=== PATIENT | female | born 1950 | race Caucasian/White ===

== ENCOUNTER 2019-06-08 09:17 | Emergency (ER) | payer MEDICARE, SELFPAY ==
--- NOTE | ~2019-06-08 | CT_ITS ---
EXAMINATION: CT abdomen pelvis wo con DATE: 06/08/2019 10:16 INDICATION: Left flank pain TECHNIQUE: Computed tomography (CT) of the abdomen and pelvis was performed without intravenous contr ast. The dose-length product (DLP) was 608.96 mGy-cm. Automated exposure control and iterative recons truction technique were employed. COMPARISON: 01/12/2018 FINDINGS: The lung bases are clear. The heart size is normal. There are changes of cardiac valve surg marita. The liver is diffusely low in attenuation when compared with the spleen, consistent with hepatic steatosis. The gallbladder is surgically absent. The spleen, pancreas, and adrenal glands are normal . There is a 3 mm stone at the left ureterovesicular junction which causes mild left hydroureteroneph rosis. There are chronic calyceal calcifications of the right kidney. There is a 2 mm nonobstructing stone of the left kidney lower pole. No stones are identified in the right ureter or the bladder. Col onic diverticulosis is present without evidence of diverticulitis. No pathologically enlarged abdomin al or pelvic lymph nodes are identified. There is no free intraperitoneal gas or evidence of bowel ob struction. There are changes of mesh ventral hernia repair. There is chronic subcutaneous calcificati on in the left buttock area. There is moderate lumbar spondylosis. IMPRESSION: 1. 3 mm stone of the left ureterovesicular junction causing mild left hydroureteronephrosis. 2. Bilateral nephrolithiasis. Reviewed, dictated and finalized at location A. OGY LABORATORY ASSISTANT IMPRESSION: 1. 3 mm stone of the left ureterovesicular junction causing mild left hydrouret eronephrosis. 2. Bilateral nephrolithiasis.
--- NOTE | ~2019-06-08 | XR_ITS ---
EXAMINATION: XR abdomen/kub 1V INDICATION: Left flank pain TECHNIQUE: Supine views of the abdomen were obtained on 2 radiographs. COMPARISON: 08/27/[address] from today FINDINGS: The 3 mm left ureterovesicular junction stone identified on today's CT examination is not d efinitely identified. The bowel gas pattern is normal. There is a moderate volume of colonic stool. C holecystectomy clips are noted in the right upper quadrant. There are changes of mesh ventral hernia repair. IMPRESSION: 1. Known left ureterovesicular junction stone not definitely identified. Reviewed, dictated and finalized at location A. CONSULTANT
[2019-06-08 09:21] VITALS: BP 171/71; PULSE 77; RESP 18; TEMP 36.5; O2SAT 100
--- NOTE | 2019-06-08 09:46 | ED.ABDPAIN ---
HPI - Abdominal Pain General Chief Complaint: Abdominal Pain <Daniel Valenzuela PA-C - Last Filed: 06/08/19 12:46> Stated Complaint: LLQ abdominal pain <Daniel Valenzuela PA-C - Last Filed: 06/08/19 12:46> Time Seen by Provider: 06/08/19 09:19 <Daniel Valenzuela PA-C - Last Filed: 06/08/19 12:46> Source: patient and family <Daniel Valenzuela PA-C - Last Filed: 06/08/19 12:46> Mode of arrival: ambulatory <Daniel Valenzuela PA-C - Last Filed: 06/08/19 12:46> Limitations: no limitations <Daniel Valenzuela PA-C - Last Filed: 06/08/19 12:46> History of Present Illness HPI narrative: Patient is a 68-year-old female who presents to emergency department for evaluation of left groin pain that began this morning is a sharp stabbing pain possibly consistent with past urolithiasis patient notes 1 episode of emesis. Patient presents per private vehicle has not had anything for her pain denies other illness injury or trauma. Pain does not radiate. Pain is moderate to severe in nature <Daniel Valenzuela PA-C - Last Filed: 06/08/19 12:46> Related Data Allergies/Adverse Reactions: Allergies Allergy/AdvReac Type Severity Reaction Status Date / Time codeine Allergy Unknown Unknown Verified 06/08/19 09:35 <Daniel Valenzuela PA-C - Last Filed: 06/08/19 12:46> Review of Systems Review of Systems: All systems reviewed & are unremarkable except as noted in HPI and below <Daniel Valenzuela PA-C - Last Filed: 06/08/19 12:46> FORMERLY [facility] Past Medical History Medical History: Medical History (Updated 06/08/19 @ 10:59 by Daniel Valenzuela PA-C) Obesity Urolithiasis <Daniel Valenzuela PA-C - Last Filed: 06/08/19 12:46> Surgical History Surgical History: Surgical History (Updated 06/08/19 @ 09:48 by Daniel Valenzuela PA-C) H/O heart valve replacement with porcine valve <MARY Grande Last Filed: 06/08/19 12:46> Family History Family History: Family History Mother Hypertension Family history of rheumatoid arthritis Family history of cardiovascular disease Family history of chronic obstructive pulmonary disease Sibling Hypertension Family history of elevated blood lipids Family history of malignant neoplasm Family history of chronic obstructive pulmonary disease Father Family history of cardiovascular disease Family history of liver disease Family history of malignant neoplasm <Daniel Valenzuela PA-C - Last Filed: 06/08/19 12:46> Social History Social History: Social History Smoking status: Never smoker Gender identity (if verbalized by the patient): Female <Daniel Valenzuela PA-C - Last Filed: 06/08/19 12:46> Exam Narrative: Exam Narrative: GENERAL: Well-appearing, obese, and in no acute distress. HEAD: Normocephalic, atraumatic. EYES: PERRLA and EOMI. ENT: Nares clear, no rhinorrhea or epistaxis. Mucous membranes moist. Oropharynx without tonsillar hypertrophy exudate or other lesions. CHEST: Clear to auscultation. No respiratory distress. No wheezes rales or rhonchi HEART: Regular rate and rhythm. No murmur heard. Normal peripheral pulses. ABDOMEN: Soft, nontender, distended EXTREMITIES: Normal range of motion. No edema. SKIN: Warm, dry, no rash. NEURO: No focal deficits. Alert and oriented x3. Cranial nerves II through XII grossly intact PSYCH: Normal mood and affect. <Daniel Valenzuela PA-C - Last Filed: 06/08/19 12:46> Course Course Emergency Course: Patient in the room in no distress aware of case findings treatment plan and diagnosis agreeing to follow-up as directed or to return if symptoms worsen or concerns <Daniel Valenzuela PA-C - Last Filed: 06/08/19 12:46> Vital Signs Vital signs: Vital Signs Temperature 97.7 F 06/08/19 09:21 Pulse Rate 77 06/08/19 09:21 Respiratory Rate 18 02
[2019-06-08] MEDS: ONDANSETRON INJ 4 MG/2 ML VIAL IV PUSH (09:51)
[2019-06-08] MEDS: SODIUM CHLORIDE 0.9% IV 1,000 ML 999 ML IV CONT ×2 (09:51→11:10)
[2019-06-08] MEDS: FAMOTIDINE 20 MG/2 ML VIAL IV PUSH (09:51)
[2019-06-08 09:54] LABS: Basophils Absolute Auto 0.1 K/mm3 (0.0-0.1); Basophils Percent Auto 0.6 % (0.2-1.2); Eosinophils Percent Auto 0.3 % (0-4.4); Hematocrit 44.7 % (37.0-47.0); Hemoglobin 13.6 g/dL (12.0-15.0); Immature Granulocyte Absolute 0.05 K/mm3 (0.00-0.031); Immature Granulocyte Percent A 0.6 % (0-0.5); Lymphocytes Absolute Auto 2.52 K/mm3 (0.9-3.2); Lymphocytes Percent Auto 28.1 % (18.3-44.2); Mean Corpuscular HGB Conc 30.4 g/dl (32-36); Mean Corpuscular Hemoglobin 27.3 pg (26-34); Mean Corpuscular Volume 89.6 fl (80-100); Monocytes Absolute Auto 0.5 K/mm3 (0.1-0.6); Neutrophils Absolute Auto 5.9 K/mm3 (1.3-6.7); Neutrophils Percent Auto 65.4 % (45.5-73.1); Platelet Count Result 310 k/mm3 (150-375); Red Blood Count 4.99 M/mm3 (4.2-5.4); Red Cell Distribution Width 13.6 % (11.5-14.5)
[2019-06-08 09:59] LABS: Add Urine Microscopic? YES; Appearance Urine Clear (Clear); Bacteria Urine Trace /hpf; Bilirubin Urine Negative (Negative); Blood Urine 3+ (Negative); Color Urine Straw (Yellow); Glucose Urine UA 1+ mg/dL (Negative); Ketones Urine Negative (Negative); Leukocyte Esterase Ur Negative LEU/UL (Negative); Mucus Urine Rare /lpf; Nitrate Urine Negative (Negative); Protein Urine 1+ mg/dL (Negative); RBC Urine >75 /hpf (0-2); Specific Grav Ur 1.011 (1.001-1.035); Squamous Epithelial Cell Urine Few /hpf (Few); Urobilinogen Urine Negative mg/dL (<2.0); WBC Urine 0-3 /hpf
[2019-06-08 10:06] LABS: Lactic Acid Reflex 2.6 mmol/L (0.7-2.1)
[2019-06-08 10:11] LABS: Alanine Aminotransferase 53 U/L (4-35); Albumin Level 4.8 g/dL (3.5-5.1); Alkaline Phosphatase 128 U/L (38-126); Aspartate Amino Transferase 63 U/L (14-36); Bilirubin,Total 0.7 mg/dL (0.2-1.3); Blood Urea Nitrogen 18 mg/dL (7-17); Calcium 9.7 mg/dL (8.4-10.2); Carbon Dioxide 25 mmol/L (22-30); Chloride 97 mmol/L (98-107); Estimated CRCL calculation 80 ml/min; Estimated Glomerular Filt Rate > 60; Glucose 280 mg/dL (65-105); Lipase 104 U/L (23-300); Potassium 4.5 mmol/L (3.4-5.0); Sodium 139 mmol/L (137-145)
[2019-06-08] MEDS: KETOROLAC 15 MG/ML VIAL (*BKC) IV PUSH (11:09)
[2019-06-08 11:16] VITALS: BP 176/69; PULSE 76; RESP 16; O2SAT 99
[2019-06-08 12:51] LABS: Reflex Lactic Acid Yes or No Add Lactic
[2019-06-08 13:15] VITALS: BP 145/64; PULSE 78; RESP 16; O2SAT 99
--- NOTE | 2019-06-17 07:50 | PC.NURSE ---
LATE ENTRY This note is being entered to document information to the patient's record. The following information was omitted on [06/17/19], by [Cat TAM stopped at 1051 and 1210 on 06/08/19].
== END 2019-06-08 13:17 | disposition home or self-care (01) ==
PROVIDERS: Emergency Medicine Emergency Medical Services; Emergency Provider General Practice; PCP Family Medicine Adolescent Medicine
DX: N13.2 Hydronephrosis with renal and ureteral calculous obstruction (principal); E66.9 Obesity, unspecified; Z68.39 Body mass index [BMI] 39.0-39.9, adult; Z87.442 Personal history of urinary calculi; Z95.2 Presence of prosthetic heart valve
CPT/HCPCS: 36415; 74018; 74176; 80053; 81001; 83605; 83690; 85025; 96361; 96365; 96375; 99284; J0131; J1885; J2405; J7030

== ENCOUNTER 2022-02-24 08:18 | Outpatient (RCR) | payer MEDICARE, SELFPAY ==
[2022-02-24 09:12] VITALS: BMI 38.9
== END 2022-05-16 09:48 | disposition home or self-care (01) ==
LOC: ANHWOC 08:18
PROVIDERS: PCP Family Medicine Adolescent Medicine; Visit Provider Family Medicine Adolescent Medicine
DX: S81.809D Unspecified open wound, unspecified lower leg, subsequent encounter (principal)
CPT/HCPCS: 99213; G0463

== ENCOUNTER 2022-06-22 11:37 | Outpatient (CLI) | payer MEDICARE, SELFPAY ==
--- NOTE | ~2022-06-22 | XR_ITS ---
EXAMINATION: XR chest 2V Exam Date/Time: 06/22/2022 11:47 [facility]INC PLATE GRAINER HISTORY: [facility] Comparison: 12/31/2017, 04/01/2011, 12/05/2007; CT abdomen and pelvis 05/29/2019. RESULT: Lines, tubes, and devices: Intact sternotomy wires. Cardiac valve replacement. Lungs and pleura: Clear. Cardiomediastinal silhouette: Stable. Other: No acute osseous or upper abdominal finding. IMPRESSION: No acute cardiopulmonary process. Reviewed, dictated and finalized at location K. PLATE GRAINER
== END 2022-06-22 11:38 | disposition home or self-care (01) ==
PROVIDERS: PCP Family Medicine Adolescent Medicine; Visit Provider Internal Medicine Cardiovascular Disease
DX: R06.09 Other forms of dyspnea (principal)
CPT/HCPCS: 71046

== ENCOUNTER 2022-09-19 01:36 | Day surgery (SDC) | payer MEDICARE, SELFPAY ==
[2022-09-16 15:20] VITALS: BMI 39.1
[2022-09-19] VITALS (12 sets, daily range): BP systolic 94–124; BP diastolic 54–77; PULSE 86–109; RESP 14–23; TEMP 36.6; O2SAT 95–99; BMI 39.6
--- NOTE | 2022-09-19 08:30 | ECG_ITS ---
Measurements Intervals [place] Rate: 94 P: [place]: 0 QRS: 5 QRSD: 97 T: 42 QT: 386 QTc: 484 Interpretive Statements ATRIAL FIBRILLATION WITH ABERRANT CONDUCTION OR VENTRICULAR PREMATURE COMPLEXES PROBABLE INFERIOR MYOCARDIAL INFARCTION , PROBABLY OLD [35 ms Q WAVE IN II/aVF] ABNORMAL ECG NO PREVIOUS ECG AVAILABLE FOR COMPARISON Electronically Signed On 09-19-2022 10:25:28 CDT by Walt Rahman M.D.
[2022-09-19 08:56] LABS: Anion Gap 11 mmol/L (8-16); Blood Urea Nitrogen 59 mg/dL (7-17); Calcium 9.7 mg/dL (8.4-10.2); Carbon Dioxide 25 mmol/L (22-30); Chloride 102 mmol/L (98-107); Estimated CRCL calculation 47 ml/min; Estimated Glomerular Filt Rate 55; Glucose 228 mg/dL (65-110); Potassium 4.3 mmol/L (3.4-5.0); Sodium 138 mmol/L (137-145)
--- NOTE | 2022-09-19 09:43 | PM.IMHP ---
H&P: HPI History of Present Illness Date/Time: 09/19/22 09:43 Chief Complaint: Atrial fibrillation Narrative: 72-year-old noted in the office to have atrial fibrillation. She was having some chest pains shortness of breath. Metoprolol was increased. She is here today for cardioversion Review of Systems Review of Systems: All systems reviewed & are unremarkable except as noted in HPI and below Constitutional: Constitutional: Denies body ache(s) Cardiovascular: Cardiovascular: Denies chest pain and Reports palpitations Respiratory: Respiratory: Denies cough Gastrointestinal: Gastrointestinal: Denies abdominal pain PMFSH Past Medical History Medical History Obesity Urolithiasis Surgical History Surgical History H/O heart valve replacement with porcine valve History of aortic valve replacement with bioprosthetic valve (11/2016) History of lithotripsy (~01/2018) right Hx of appendectomy (2004) Hx of cholecystectomy (2004) Hx of hernia repair x3 Hx of total knee arthroplasty Right 2009, Left 2003 Family History Family History Mother Hypertension Family history of rheumatoid arthritis Family history of cardiovascular disease Family history of chronic obstructive pulmonary disease Sibling Hypertension Family history of elevated blood lipids Family history of malignant neoplasm Family history of chronic obstructive pulmonary disease Father Family history of cardiovascular disease Family history of liver disease Family history of malignant neoplasm Social History Social History Smoking packs per day: 0 Smoking cigarettes per day: 0.0 Smoking status: Never smoker Substance use: never Substance use type: does not use Living arrangements: with family Additional living arrangements comments: LIVES WITH , TIFFANY. Gender identity (if verbalized by the patient): Female Sexual Orientation (if Verbalized by the Patient): Straight or Heterosexual Spiritual care concerns: No Meds Home Medications and Allergies Home Medications Medication Instructions Recorded Confirmed Type famotidine 20 mg tablet 20 mg PO BID #60 tabs 06/16/21 09/19/22 Rx furosemide 40 mg tablet 60 mg PO QAM #135 tabs 01/03/22 09/19/22 Rx doxycycline hyclate 20 mg tablet 40 mg PO DAILY 01/04/22 09/19/22 History metolazone 2.5 mg tablet 2.5 mg PO EVERY OTHER DAY 01/04/22 09/16/22 History lisinopril 20 mg tablet 20 mg PO BID #180 tabs 02/17/22 09/19/22 Rx allopurinol 300 mg tablet 300 mg PO DAILY #30 tabs 04/29/22 09/19/22 Rx metoprolol tartrate 50 mg tablet 50 mg PO BID 08/09/22 09/19/22 History rivaroxaban 20 mg tablet (Xarelto) 20 mg PO DAILY 08/09/22 09/19/22 History blood sugar diagnostic (Accu-Chek #100 ea 08/10/22 Rx Norma Plus test strips) hydrocodone 10 mg-acetaminophen 0.5 tablet PO TID PRN pain #20 tabs 08/25/22 09/19/22 Rx 325 mg tablet glimepiride 2 mg tablet 4 mg PO DAILY #180 tabs 08/29/22 09/19/22 Rx magnesium oxide 400 mg (241.3 mg 400 mg PO DAILY 09/16/22 09/19/22 History magnesium) tablet metformin 500 mg tablet,extended 500 mg PO QID 09/16/22 09/19/22 History release 24 hr pravastatin 20 mg tablet 20 mg PO HS 09/16/22 09/19/22 History propylene glycol 0.6 % eye drops 1 drp EACH EYE DAILY PRN Dry Eyes 09/16/22 09/16/22 History (Systane Balance) Allergies Allergy/AdvReac Type Severity Reaction Status Date / Time codeine Allergy Unknown Nausea and Verified 09/19/22 08:39 Vomiting Sulfa (Sulfonamide Allergy Rash Verified 09/19/22 08:39 Antibiotics) Vital Signs Vital Signs - 24 hr 09/19/22 08:30 Temperature 36.6 C Pulse Rate 90 Respiratory Rate 22 H Blood Pressure 105/61 Pulse Oximetry 96 Oxygen Delivery Room Air Exam N
--- NOTE | 2022-09-19 09:46 | WPDMODSED ---
Moderate Sedation Note-Pt Data Patient Data Diagnosis: atrial fibrillation Present Complaint: atrial fibrillation Procedure to be performed/Plan: 1. Elective cardioversion 2. Moderate sedation Allergies Allergy/AdvReac Type Severity Reaction Status Date / Time codeine Allergy Unknown Nausea and Verified 09/19/22 08:39 Vomiting Sulfa (Sulfonamide Allergy Rash Verified 09/19/22 08:39 Antibiotics) Home Medications Medication Instructions Recorded Confirmed Type famotidine 20 mg tablet 20 mg PO BID #60 tabs 06/16/21 09/19/22 Rx furosemide 40 mg tablet 60 mg PO QAM #135 tabs 01/03/22 09/19/22 Rx doxycycline hyclate 20 mg tablet 40 mg PO DAILY 01/04/22 09/19/22 History metolazone 2.5 mg tablet 2.5 mg PO EVERY OTHER DAY 01/04/22 09/16/22 History lisinopril 20 mg tablet 20 mg PO BID #180 tabs 02/17/22 09/19/22 Rx allopurinol 300 mg tablet 300 mg PO DAILY #30 tabs 04/29/22 09/19/22 Rx metoprolol tartrate 50 mg tablet 50 mg PO BID 08/09/22 09/19/22 History rivaroxaban 20 mg tablet (Xarelto) 20 mg PO DAILY 08/09/22 09/19/22 History blood sugar diagnostic (Accu-Chek #100 ea 08/10/22 Rx Norma Plus test strips) hydrocodone 10 mg-acetaminophen 0.5 tablet PO TID PRN pain #20 tabs 08/25/22 09/19/22 Rx 325 mg tablet glimepiride 2 mg tablet 4 mg PO DAILY #180 tabs 08/29/22 09/19/22 Rx magnesium oxide 400 mg (241.3 mg 400 mg PO DAILY 09/16/22 09/19/22 History magnesium) tablet metformin 500 mg tablet,extended 500 mg PO QID 09/16/22 09/19/22 History release 24 hr pravastatin 20 mg tablet 20 mg PO HS 09/16/22 09/19/22 History propylene glycol 0.6 % eye drops 1 drp EACH EYE DAILY PRN Dry Eyes 09/16/22 09/16/22 History (Systane Balance) Current Medications: Active Medications Sodium Chloride (Normal Saline Iv) 500 mls @ 30 mls/hr IV CONT .[id number] TAMMIE Sedation/Anesthesia: No previous sedation/anesthesia problems (including family history). FORMERLY [facility] Past Medical History Medical History Obesity Urolithiasis Surgical History Surgical History H/O heart valve replacement with porcine valve History of aortic valve replacement with bioprosthetic valve (11/2016) History of lithotripsy (~01/2018) right Hx of appendectomy (2004) Hx of cholecystectomy (2004) Hx of hernia repair x3 Hx of total knee arthroplasty Right 2009, Left 2003 Family History Family History Mother Hypertension Family history of rheumatoid arthritis Family history of cardiovascular disease Family history of chronic obstructive pulmonary disease Sibling Hypertension Family history of elevated blood lipids Family history of malignant neoplasm Family history of chronic obstructive pulmonary disease Father Family history of cardiovascular disease Family history of liver disease Family history of malignant neoplasm Social History Social History Smoking packs per day: 0 Smoking cigarettes per day: 0.0 Smoking status: Never smoker Substance use: never Substance use type: does not use Living arrangements: with family Additional living arrangements comments: LIVES WITH , TIFFANY. Gender identity (if verbalized by the patient): Female Sexual Orientation (if Verbalized by the Patient): Straight or Heterosexual Spiritual care concerns: No Mod Sed Physical Exam Physical Exam Pre Procedural Exam: Normal: Appearance, Eyes, Ears, Nose, Neck, Throat, Airway, Lungs, Heart Size, Heart Rate, Neuro Exam, Extremities and Skin and Variation: Heart Rhythm ( irregular irregular) Hours since solid foods: 12 Hours since liquid intake: 12 Mallampati Classification: class II Internal Medicine - PN: Obj Da Vital Signs Vital Signs: Vital Signs - 24 hr 09/19/22 08:30 Temperature 36.6 C Pul
--- NOTE | 2022-09-19 10:09 | WPDCARDVER ---
Cardioversion Cardioversion Date of procedure: 09/19/22 Procedure: outpatient elective electrical cardioversion Moderate sedation Pre-op diagnosis: atrial fibrillation Post-op diagnosis: Same Indications: atrial fibrillation Description of procedure: after discussing the risks, benefits and alternatives of procedure patient agreeable via verbal and written informed consent. Risks discussed included skin irritation or burn, stroke, , adverse reaction anesthesia, shocking into more problematic heart rhythm. After time-out was taken and after establishing continuous telemetry monitoring, pulse ox Wong and serial blood pressure assessments the procedure was initiated. Procedure start time 9:49 a.m. Procedure stop time 10:04 a.m. Complications: None Blood loss: None Patient was monitored and medications were administered by Cheli Fonseca RN Sedation: a total of 6 mg of Versed and 75 mcg of fentanyl were given in divided dosages Findings: cardioversion was only temporarily successful on 2 occasions. 150 joules as well as 200 joules were both utilized which did temporarily but only briefly restore sinus rhythm from atrial fibrillation. She reverted back into atrial fibrillation quickly and a 3rd attempt therefore was not made. Conclusion: 1. Only briefly successful outpatient elective cardioversion using 150 and 200 joules of synchronized biphasic energy to restore sinus rhythm from atrial fibrillation 2. Moderate sedation Plan: Will start amiodarone 200 mg p.o. b.i.d. and bring her back in 3 weeks for re-attempt at cardioversion. Continue other medications without change especially Xarelto
== END 2022-09-19 11:43 | disposition home or self-care (01) ==
PROVIDERS: PCP Family Medicine Adolescent Medicine; Visit Provider Internal Medicine Cardiovascular Disease
PROC: 5A2204Z Restoration of Cardiac Rhythm, Single (ICD-10-PCS; principal; 2022-09-19 10:00)
DX: I48.91 Unspecified atrial fibrillation (principal); Z95.3 Presence of xenogenic heart valve; E66.9 Obesity, unspecified; Z68.39 Body mass index [BMI] 39.0-39.9, adult; Z79.84 Long term (current) use of oral hypoglycemic drugs; Z79.01 Long term (current) use of anticoagulants
CPT/HCPCS: 36415; 80048; 83735; 92960; J2250; J3010; J7030

== ENCOUNTER 2022-10-10 00:15 | Day surgery (SDC) | payer MEDICARE, SELFPAY ==
[2022-10-07 16:16] VITALS: BMI 37.9
[2022-10-10] VITALS (9 sets, daily range): BP systolic 92–132; BP diastolic 49–79; PULSE 47–79; RESP 14–18; TEMP 36.3; O2SAT 95–97
--- NOTE | 2022-10-10 09:51 | ECG_ITS ---
Measurements Intervals [place] Rate: 50 P: 33 MT: 153 QRS: 9 QRSD: 108 T: 46 QT: 495 QTc: 455 Interpretive Statements SINUS BRADYCARDIA WITH SINUS ARRHYTHMIA POSSIBLE LEFT ATRIAL ENLARGEMENT [-0.1mV P WAVE IN V1/V2] INFERIOR MYOCARDIAL INFARCTION , PROBABLY OLD [40+ ms Q WAVE AND/OR ST/T ABNORMALITY IN II/aVF] ABNORMAL ECG COMPARED TO ECG 10/10/2022 09:56:54 SINUS BRADYCARDIA NOW PRESENT SINUS ARRHYTHMIA NOW PRESENT Electronically Signed On 10-10-2022 11:13:53 CDT by Walt Rahman M.D.
--- NOTE | 2022-10-10 10:25 | WPDMODSED ---
Moderate Sedation Note-Pt Data Patient Data Diagnosis: Atrial fibrillation Present Complaint: atrial fibrillation Procedure to be performed/Plan: moderate sedation Electrical cardioversion Allergies Allergy/AdvReac Type Severity Reaction Status Date / Time Sulfa (Sulfonamide Allergy Rash Verified 10/10/22 09:54 Antibiotics) codeine AdvReac Unknown Nausea and Verified 10/10/22 09:54 Vomiting Home Medications Medication Instructions Recorded Confirmed Type famotidine 20 mg tablet 20 mg PO BID #60 tabs 06/16/21 10/07/22 Rx furosemide 40 mg tablet 60 mg PO QAM #135 tabs 01/03/22 10/07/22 Rx doxycycline hyclate 20 mg tablet 40 mg PO DAILY 01/04/22 10/07/22 History metolazone 2.5 mg tablet 2.5 mg PO EVERY OTHER DAY 01/04/22 09/16/22 History lisinopril 20 mg tablet 20 mg PO BID #180 tabs 02/17/22 10/10/22 Rx metoprolol tartrate 50 mg tablet 50 mg PO BID 08/09/22 10/10/22 History rivaroxaban 20 mg tablet (Xarelto) 20 mg PO DAILY 08/09/22 10/10/22 History blood sugar diagnostic (Accu-Chek #100 ea 08/10/22 Rx Norma Plus test strips) glimepiride 2 mg tablet 4 mg PO DAILY #180 tabs 08/29/22 10/07/22 Rx magnesium oxide 400 mg (241.3 mg 400 mg PO DAILY 09/16/22 10/10/22 History magnesium) tablet metformin 500 mg tablet,extended 500 mg PO QID 09/16/22 09/19/22 History release 24 hr pravastatin 20 mg tablet 20 mg PO HS 09/16/22 09/19/22 History propylene glycol 0.6 % eye drops 1 drp EACH EYE DAILY PRN Dry Eyes 09/16/22 09/16/22 History (Systane Balance) hydrocodone 10 mg-acetaminophen 0.5 tablet PO TID PRN pain #20 tabs 09/22/22 10/07/22 Rx 325 mg tablet allopurinol 300 mg tablet 300 mg PO DAILY #30 tabs 09/30/22 10/07/22 Rx amiodarone 200 mg tablet 200 mg PO DAILY 10/07/22 10/07/22 History Current Medications: Active Medications Sodium Chloride (Normal Saline Iv) 1,000 mls @ 30 mls/hr IV CONT .Q24H TAMMIE Sedation/Anesthesia: No previous sedation/anesthesia problems (including family history). [facility] Past Medical History Medical History Obesity Urolithiasis Surgical History Surgical History H/O heart valve replacement with porcine valve History of aortic valve replacement with bioprosthetic valve (11/2016) History of lithotripsy (~01/2018) right Hx of appendectomy (2004) Hx of cholecystectomy (2004) Hx of hernia repair x3 Hx of total knee arthroplasty Right 2009, Left 2003 Family History Family History Mother Hypertension Family history of rheumatoid arthritis Family history of cardiovascular disease Family history of chronic obstructive pulmonary disease Sibling Hypertension Family history of elevated blood lipids Family history of malignant neoplasm Family history of chronic obstructive pulmonary disease Father Family history of cardiovascular disease Family history of liver disease Family history of malignant neoplasm Social History Social History Smoking packs per day: 0 Smoking cigarettes per day: 0.0 Smoking status: Never smoker Second hand tobacco smoke exposure: Yes Alcohol intake: current Alcohol use details: 3 DRINKS PER MONTH Substance use: never Substance use type: does not use Living arrangements: with family Additional living arrangements comments: LIVES WITH , TIFFANY. Gender identity (if verbalized by the patient): Female Sexual Orientation (if Verbalized by the Patient): Straight or Heterosexual Spiritual care concerns: No Mod Sed Physical Exam Physical Exam Pre Procedural Exam: Normal: Appearance, Eyes, Ears, Nose, Neck, Throat, Airway, Lungs, Heart Size, Heart Rate, Neuro Exam, Extremities and Skin and Variation: Heart Rhythm ( irregular irregular) Hours since solid foods: 12 Hours since liquid
[2022-10-10 10:27] LABS: Anion Gap 8 mmol/L (8-16); Blood Urea Nitrogen 28 mg/dL (7-17); Calcium 9.9 mg/dL (8.4-10.2); Carbon Dioxide 30 mmol/L (22-30); Chloride 102 mmol/L (98-107); Estimated CRCL calculation 57 ml/min; Estimated Glomerular Filt Rate > 60; Glucose 201 mg/dL (65-110); Magnesium 1.6 mg/dL (1.6-2.3); Potassium 4.1 mmol/L (3.4-5.0); Sodium 140 mmol/L (137-145)
--- NOTE | 2022-10-10 10:30 | ECG_ITS ---
Measurements Intervals [place] Rate: 72 P: [place]: 0 QRS: 8 QRSD: 110 T: 49 QT: 445 QTc: 487 Interpretive Statements ATRIAL FIBRILLATION INFERIOR MYOCARDIAL INFARCTION , PROBABLY OLD [40+ ms Q WAVE AND/OR ST/T ABNORMALITY IN II/aVF] ABNORMAL ECG COMPARED TO ECG 09/19/2022 08:25:18 NO SIGNIFICANT CHANGES Electronically Signed On 10-10-2022 10:42:25 CDT by Walt Rahman M.D.
--- NOTE | 2022-10-10 11:04 | WPDCARDVER ---
Cardioversion Cardioversion Date of procedure: 10/10/22 Procedure: moderate sedation Electrical cardioversion Pre-op diagnosis: atrial fibrillation Post-op diagnosis: Same Indications: atrial fibrillation Description of procedure: after discussing the risks, benefits alternatives of the procedure patient agreeable via verbal and written informed consent. Risks discussed included skin irritation burn, shock into more problematic heart rhythm, , stroke, adverse reaction anesthesia. After establishing continuous vehicle monitor technician, pulse oxygenation in serial blood pressure assessments, time-out was taken the procedure was initiated. Medications used: Versed 4 mg total and 75 mcg of fentanyl given in divided dosages. Start time 10:51 a.m. Stop time 11:01 a.m. Medications were administered patient was monitored by Deysi Gaspar complications: None Blood loss: None After adequate sedation: 150 joules of biphasic synchronized energy was used to restore sinus rhythm /sinus bradycardia Sedation: as above, Versed 4 mg total and 75 mcg of fentanyl given in divided dosages Findings: successful evangelical of sinus rhythm/ sinus bradycardia using 100 joules biphasic synchronized energy Conclusion: successful elective cardioversion Moderate sedation
== END 2022-10-10 12:03 | disposition home or self-care (01) ==
PROVIDERS: PCP Family Medicine Adolescent Medicine; Visit Provider Internal Medicine Cardiovascular Disease
PROC: 5A2204Z Restoration of Cardiac Rhythm, Single (ICD-10-PCS; principal; 2022-10-10 11:30)
DX: I48.91 Unspecified atrial fibrillation (principal); Z95.3 Presence of xenogenic heart valve; Z79.01 Long term (current) use of anticoagulants; Z79.84 Long term (current) use of oral hypoglycemic drugs; Z79.891 Long term (current) use of opiate analgesic
CPT/HCPCS: 36415; 80048; 83735; 92960

== ENCOUNTER 2022-11-04 18:23 | Inpatient (IN) | payer MEDICARE, SELFPAY ==
--- NOTE | ~2022-11-04 | CT_ITS ---
EXAMINATION: CT abdomen pelvis w con DATE: 11/04/2022 19:34 INDICATION: lower abdominal tendnerss, hematochezia TECHNIQUE: Computed tomography (CT) of the abdomen and pelvis was performed with 100 mL Omnipaque-350 intravenous contrast. Automated exposure control and iterative reconstruction technique were employe d. The dose-length product was 2423.10 mGy-cm. COMPARISON: 06/08/2019. FINDINGS: Portions of the right lateral abdominal wall could not be included within the [id number]. Lower thorax: Aortic valve replacement. Extensive mitral calcification. Mild coronary artery calcific ation. Mild bilateral dependent scar/atelectasis. Liver: Enlarged. Biliary/Gallbladder: Gallbladder is absent. Prominent extrahepatic bile duct, likely secondary to cho lecystectomy Pancreas: Mild atrophy. Spleen: Normal. Adrenals:No mass. Kidneys: Punctate left lower pole nonobstructing calcification. Multiple right-sided nonobstructing c alculi. No suspicious mass or hydronephrosis. GI tract: No small or large bowel dilation. The appendix is surgically absent. Diverticulosis without diverticulitis. Mesentery/Peritoneum: No ascites, mass, or free air. Retroperitoneum: No mass. Atherosclerotic abdominal aortic and/or arterial calcifications. Pelvis: Pelvic organs are within normal limits. Soft Tissues: Extensive abdominal hernia repair mesh. Chronic left hip subcutaneous calcifications. Bones: No acute osseous finding. IMPRESSION: No acute abdominopelvic process detected. Reviewed, dictated and finalized at location K.
[2022-11-04 18:25] VITALS: BP 169/59; PULSE 74; RESP 14; TEMP 36.4; O2SAT 99
[2022-11-04 18:51] LABS: Basophils Absolute Auto 0.1 K/mm3 (0.0-0.1); Basophils Percent Auto 0.8 % (0.2-1.2); Eosinophils Absolute Auto 0.1 K/mm3 (0-0.3); Eosinophils Percent Auto 0.6 % (0-4.4); Hematocrit 44.6 % (37.0-47.0); Hemoglobin 13.7 g/dL (12.0-15.0); Immature Granulocyte Absolute 0.05 K/mm3 (0.00-0.031); Immature Granulocyte Percent A 0.6 % (0-0.5); Lymphocytes Absolute Auto 3.73 K/mm3 (0.9-3.2); Lymphocytes Percent Auto 41.4 % (18.3-44.2); Mean Corpuscular HGB Conc 30.7 g/dl (32-36); Mean Corpuscular Hemoglobin 27.3 pg (26-34); Monocytes Absolute Auto 0.7 K/mm3 (0.1-0.6); Monocytes Percent Auto 7.5 % (2.6-8.5); Neutrophils Absolute Auto 4.4 K/mm3 (1.3-6.7); Neutrophils Percent Auto 49.1 % (45.5-73.1); Platelet Count Result 310 k/mm3 (150-375); Red Blood Count 5.01 M/mm3 (4.2-5.4); Red Cell Distribution Width 15.6 % (11.5-14.5)
[2022-11-04 19:01] LABS: INR 1.4; Prothrombin Time 18.4 Seconds (11.1-14.7)
[2022-11-04 19:02] LABS: Partial Thromboplastin Time 34.9 SECONDS (22.3-36.8)
--- NOTE | 2022-11-04 19:05 | ED.GIBLEED ---
HPI - GI Bleed General Chief complaint: GI Bleed Stated complaint: Rectal bleeding Time Seen by Provider: 11/04/22 18:34 History of Present Illness HPI Narrative: 72-year-old female with a history of atrial fibrillation, pulmonary hypertension, diastolic dysfunction, type 2 diabetes who is chronically anticoagulated with Xarelto reports for evaluation for bright red blood per rectum worsening over the past 3 days. Patient reports she was diagnosed by her PCP with hemorrhoids and usually has a small amount of blood on the toilet paper when she wipes, however 3 days ago she has had an increased amount of blood with bowel movements. She reports watery diarrhea that started 3 days ago, she is having 5-6 episodes per day and states each time she goes to the bathroom she almost feels the toilet bowl with blood. She reports nausea in the mornings for the past 2 to 3 days and lower abdominal pain that started yesterday and today. She does report intermittent process of lightheadedness that is worse when she moves her head quickly and goes from sitting to standing position. She denies loss of consciousness, back pain, dizziness, dysuria, vaginal bleeding, vomiting, fever, rectal pain or itching, chest pain or shortness of breath, vomiting or hematemesis. States her last colonoscopy has been within the past 5 years and was normal. Patient reports a history of colitis many years ago. She denies history of colon cancer or IBD. Denies family history of colon cancer or IBD. She does report a history of colitis. Related Data Home Medications Medication Instructions Recorded Confirmed doxycycline hyclate 20 mg tablet 40 mg PO DAILY 01/04/22 11/05/22 metolazone 2.5 mg tablet 2.5 mg PO 3XW 01/04/22 11/05/22 rivaroxaban 20 mg tablet (Xarelto) 20 mg PO HS 08/09/22 11/05/22 magnesium oxide 400 mg (241.3 mg 400 mg PO DAILY 09/16/22 11/05/22 magnesium) tablet metformin 500 mg tablet,extended 500 mg PO QID 09/16/22 11/05/22 release 24 hr pravastatin 20 mg tablet 20 mg PO HS 09/16/22 11/05/22 propylene glycol 0.6 % eye drops 1 drp EACH EYE DAILY Dry Eyes 09/16/22 11/05/22 (Systane Balance) amiodarone 200 mg tablet 200 mg PO DAILY 10/07/22 11/05/22 indomethacin 50 mg capsule 50 mg PO TID PRN .Gout flare ups. 11/05/22 11/05/22 Allergies Allergy/AdvReac Type Severity Reaction Status Date / Time Sulfa (Sulfonamide Allergy Rash Verified 11/05/22 00:36 Antibiotics) codeine AdvReac Unknown Nausea and Verified 11/05/22 00:36 Vomiting Review of Systems Review of Systems: CONSTITUTIONAL: Denies fever, chills EYES: Denies visual changes, redness, or discharge. ENT: Denies rhinorrhea, congestion, sore throat, or otalgia. CARDIOVASCULAR: Denies chest pain, palpitations, or edema. RESPIRATORY: Denies cough or dyspnea. GASTROINTESTINAL: See HPI GENITOURINARY: Denies dysuria or hematuria. SKIN: Denies rash or itching. MUSCULOSKELETAL: Denies back pain, joint pain, or myalgia. NEUROLOGIC: Denies headache, numbness, dizziness, or weakness. PSYCHIATRIC: Denies anxiety or depression. [facility] Past Medical History Medical History Obesity Urolithiasis Surgical History Surgical History H/O heart valve replacement with porcine valve History of aortic valve replacement with bioprosthetic valve (11/2016) History of lithotripsy (~01/2018) right Hx of appendectomy (2004) Hx of cholecystectomy (2004) Hx of hernia repair x3 Hx of total knee arthroplasty Right 2009, Left 2003 Family History Family History Mother Family history of cardiovascular disease Family history of chronic obstructive pulmonary disease Family history of rheumatoid arthritis Hypertension Sibling Family history of elevated blood lipids Family history of malignant neoplasm Family history of chronic ob
[2022-11-04 19:10] LABS: Alanine Aminotransferase 38 U/L (6-35); Albumin Level 5.2 g/dL (3.5-5.1); Alkaline Phosphatase 126 U/L (38-126); Anion Gap 16 mmol/L (8-16); Aspartate Amino Transferase 40 U/L (14-36); Bilirubin,Total 0.5 mg/dL (0.2-1.3); Blood Urea Nitrogen 33 mg/dL (7-17); Calcium 10.8 mg/dL (8.4-10.2); Carbon Dioxide 27 mmol/L (22-30); Chloride 97 mmol/L (98-107); Estimated CRCL calculation 42 ml/min; Estimated Glomerular Filt Rate 49; Glucose 263 mg/dL (65-110); Potassium 3.7 mmol/L (3.4-5.0); Sodium 140 mmol/L (137-145)
[2022-11-04] MEDS: SODIUM CHLORIDE 0.9% IV 1,000 ML 500 ML IV CONT ×2 (19:20→23:10)
[2022-11-04 19:36] LABS: Lipase 112 U/L (23-300)
[2022-11-04 19:37] LABS: Lactic Acid Reflex 2.5 mmol/L (0.7-2.0)
[2022-11-04 19:51] LABS: Appearance Urine Clear (Clear); Bilirubin Urine Negative (Negative); Blood Urine Negative (Negative); Color Urine Yellow (Yellow); Glucose Urine UA Negative (Negative); Ketones Urine Negative (Negative); Leukocyte Esterase Ur Negative LEU/UL (Negative); Nitrate Urine Negative (Negative); Protein Urine Negative (Negative); Specific Grav Ur 1.013 (1.001-1.035); Urobilinogen Urine 0.2 mg/dL (<2.0); pH Urine 5.5 (5.0-9.0)
[2022-11-04 19:55] LABS: Add Urine Microscopic? NO
[2022-11-04 20:21] VITALS: BP 165/55; PULSE 70
[2022-11-04 20:22] VITALS: BP 176/77; PULSE 75
[2022-11-04 20:23] VITALS: BP 173/66; PULSE 80
[2022-11-04 20:26] VITALS: BP 165/55; PULSE 79; RESP 16; O2SAT 98
--- NOTE | 2022-11-04 21:22 | ECG_ITS ---
Measurements Intervals [place] Rate: 61 P: 27 CA: 153 QRS: -2 QRSD: 106 T: 58 QT: 370 QTc: 374 Interpretive Statements SINUS RHYTHM WITH MARKED SINUS ARRHYTHMIA BORDERLINE R WAVE PROGRESSION, ANTERIOR LEADS CONSIDER INFERIOR INFARCT, AGE INDETERMINATE BORDERLINE ST-T WAVE ABNORMALITY- HIGH LATERAL LEADS BASELINE ARTIFACT- V6 ABNORMAL ECG COMPARED TO ECG 10/10/2022 11:07:43 SINUS RHYTHM NOW PRESENT Electronically Signed On 11-05-2022 7:14:53 CDT by Orestes Prince D.O.
[2022-11-04 22:25] LABS: Reflex Lactic Acid Yes or No Add Lactic
[2022-11-04 23:12] LABS: Lactic Acid 2.3 mmol/L (0.7-2.0)
[2022-11-05] VITALS (7 sets, daily range): BP systolic 129–153; BP diastolic 55–73; PULSE 63–81; RESP 16; TEMP 35.9–36.5; O2SAT 95–100; BMI 38.9
--- NOTE | 2022-11-05 00:10 | ADMGEN ---
This patient, Lavern Rascon, was admitted to [facility] Surg Room 301-01 on 11/05/2022 at 0000. Patient/family oriented to hospital policies and general routines including ID bracelet, bed and alarms, visiting hours, pain management, procedures, bathroom and other care routines, personal items, smoking policy, room service/diet, and visiting hours. Information on how to activate the Rapid Response Team has been discussed. Patient/Family are encouraged to report perceived risks to care and to ask questions if they do not understand what they are told or what they should do.
--- NOTE | 2022-11-05 00:30 | PM.IMHP ---
H&P: HPI History of Present Illness Date/Time: 11/05/22 00:30 Chief Complaint: pooping bright red blood Narrative: 72-year-old female with past medical history of aortic valve replacement, paroxysmal atrial fibrillation on chronic 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 with Xarelto, GERD, uncontrolled type 2 diabetes mellitus who presented to the ER from home with 1 week of rectal bleeding. The patient reports that she always has mushy stools are usually brown. But for the last week she has been having watery brown stools with some bleeding. She always has a some bleeding from rectum due to history of hemorrhoids. However the last week bleeding has been heavy year. She reports the lab for the last 2 days every time she thinks she has staff a bowel movement she does pass is mostly gas and several tbsp of blood. She reports that it appears as if the toilet is full of blood. She reports that she has also been having some concomitant nausea but no real vomiting. She has no appetite. She has been having episodes of sweating and feeling clammy. The symptoms are of course worse when she is getting great have a bowel movement. She does feel slightly lightheaded at these times. She has not had any syncope. She reports that prior to having her cardioversion on the 10 of October she was having marked dyspnea. But since she is now back in sinus rhythm she is not having any dyspnea on exertion. She is on chronic diuretic therapy with denies a known history of heart failure. Her last echocardiogram was in March of 2022 demonstrated normal systolic function with mild concentric left ventricular hypertrophy and grade 1 diastolic dysfunction with EF of 70-75% with moderate left atrial enlargement. She does have chronic venous stasis dermatitis and is on chronic antibiotic therapy with doxycycline daily. She denies any chest pain. She has not had any cough or congestion. She denies any hematuria. She does have chronic urinary frequency urgency and frequent incontinence. She wears pads all the time. She denies any dysuria. Review of Systems Review of Systems: 12 systems were reviewed with pertinent positives and negatives per HPI. Except as documented in the HPI, all other systems were reviewed and are negative. 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 Chronic venous stasis dermatitis Right lower extremity greater than left on chronic antibiotic therapy with doxycycline Diabetic peripheral neuropathy Diastolic dysfunction (~03/2020) Essential hypertension Glaucoma Gout Hyperlipidemia Migraine Obesity Pulmonary hypertension (~03/2020) Type 2 diabetes mellitus with hyperglycemia, without long-term current use of insulin Urolithiasis Surgical History Surgical History (Updated 11/05/22 @ 02:51 by Phuong Gaines DO) History of aortic valve replacement with bioprosthetic valve (11/2016) bovine valve History of lithotripsy (~01/2018) right Hx of appendectomy (2004) Hx of cholecystectomy (2004) Hx of hernia repair x3 Hx of total knee arthroplasty Right 2009, Left 2003 Family History Family History Mother Family history of cardiovascular disease Family history of chronic obstructive pulmonary disease Family history of rheumatoid arthritis Hypertension Sibling Family history of elevated blood lipids Family history of malignant neoplasm Family history of chronic obstructive pulmonary disease Hypertension Lung cancer Father Family history of cardiovascular disease Family history of malignant neoplasm Family history of liver disease Social History Social History (Updated 11/05/22 @ 02:54 by Phuong Gaines DO) Social History: She lives at home with her of 40 years. She clarifies that he is her 3rd . She has 2 sons. Her youngest son is 52 years old
[2022-11-05 01:38] LABS: Hematocrit 39.3 % (37.0-47.0); Hemoglobin 12.1 g/dL (12.0-15.0)
[2022-11-05 06:52] LABS: Basophils Percent Auto 0.5 % (0.2-1.2); Eosinophils Absolute Auto 0.1 K/mm3 (0-0.3); Eosinophils Percent Auto 0.8 % (0-4.4); Hematocrit 37.7 % (37.0-47.0); Hemoglobin 11.5 g/dL (12.0-15.0); Immature Granulocyte Absolute 0.04 K/mm3 (0.00-0.031); Immature Granulocyte Percent A 0.5 % (0-0.5); Lymphocytes Absolute Auto 2.88 K/mm3 (0.9-3.2); Mean Corpuscular HGB Conc 30.5 g/dl (32-36); Mean Corpuscular Hemoglobin 27.5 pg (26-34); Mean Corpuscular Volume 90.2 fl (80-100); Mean Platelet Volume 11.2 fl (7.4-10.4); Monocytes Absolute Auto 0.6 K/mm3 (0.1-0.6); Monocytes Percent Auto 7.5 % (2.6-8.5); Neutrophils Absolute Auto 4.6 K/mm3 (1.3-6.7); Neutrophils Percent Auto 55.7 % (45.5-73.1); Platelet Count Result 269 k/mm3 (150-375); Red Blood Count 4.18 M/mm3 (4.2-5.4); Red Cell Distribution Width 15.6 % (11.5-14.5); White Blood Count 8.2 K/mm3 (4.5-10.0)
[2022-11-05 07:04] LABS: Anion Gap 9 mmol/L (8-16); Blood Urea Nitrogen 21 mg/dL (7-17); Calcium 9.6 mg/dL (8.4-10.2); Carbon Dioxide 30 mmol/L (22-30); Chloride 101 mmol/L (98-107); Estimated CRCL calculation 58 ml/min; Estimated Glomerular Filt Rate > 60; Glucose 161 mg/dL (65-110); Potassium 3.5 mmol/L (3.4-5.0); Sodium 140 mmol/L (137-145)
[2022-11-05 07:34] LABS: Glucose Point of Care 198 mg/dl (65-105)
[2022-11-05] MEDS: AMIODARONE HCL 200 MG TABLET PO (08:35)
[2022-11-05] MEDS: allopurinoL 300 MG TABLET PO (08:36)
[2022-11-05] MEDS: METOPROLOL TARTRATE 25 MG TABLET PO ×2 (08:36→21:01)
[2022-11-05] MEDS: lisinopriL 20 MG TABLET PO ×2 (08:36→17:12)
[2022-11-05] MEDS: FAMOTIDINE 20 MG TABLET PO ×2 (08:36→17:12)
[2022-11-05] MEDS: ARTIFICIAL TEARS OPHTH SOLN 15 ML BOTTLE 1 DROP EACH EYE (08:36)
[2022-11-05] MEDS: MAGNESIUM OXIDE 400 MG TABLET PO (08:36)
--- NOTE | 2022-11-05 08:37 | WPDGICN ---
Assessment and Plan Assessment and plan (1) GI bleed: Qualifiers: GI bleed type/associated pathology: unspecified gastrointestinal hemorrhage type Qualified Code(s): K92.2 - Gastrointestinal hemorrhage, unspecified Code(s): K92.2 - Gastrointestinal hemorrhage, unspecified Status: Acute Assessment and Plan: she has had intermittent rectal bleeding over the past few years due to the fact that she has hemorrhoids and is on a blood thinner but never to the extent that she has had in the past 3-6 days. For the past 3 days she has been passing blood several times a day, not just with bowel movements. The blood was 1st rather bright red but has become darker. She denies abdominal pain. Her hemoglobin on arrival in the emergency room was 13.7. This morning it is down to 11.5. She had a borderline lactic acid level of 2.5. She knows that she has had a colonoscopy several years ago. I am unable to access that aspect of the medical information system. (2) Atrial fibrillation: Code(s): I48.91 - Unspecified atrial fibrillation Status: Acute Assessment and Plan: She has had AFib fibrillation for several years but actually had cardioversion and is back in sinus rhythm. She is however still on Xarelto. 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 (4) Dermatitis: Code(s): L30.9 - Dermatitis, unspecified Status: Acute Assessment and Plan: Chronic dermatitis of the lower extremities. Plan Due to persistent bleeding and dropping hemoglobin will schedule her for colonoscopy to be done tomorrow morning. Will continue to monitor her blood counts. At this point it does not appear that she will need a transf usion. Xarelto has been held, her last dose 36 hours ago. GI Consult Note Consult date/time: 11/05/22 08:37 HPI: Lavern Rascon is a 72 year old female presented to the emergency room yesterday with rectal bleeding. She has seen blood in her stools on off for the past week, and more so in the past 3 days. The blood was bright red but it had become darker. This morning the blood she passed was darker than it had been. She has had no lower abdominal pain. She has some achiness in the epigastric area. Her stools have been loose. They tend to be loose most the time, And in fact are looser this week in fact yesterday morning she had kathryn diarrhea. She has not had a fever. She had not been traveling. She does take an antibiotic, doxycycline for dimer tightest but has been on that for quite some time. Her past medical history includes fact she has had a bovine aortic valve replacement. She has had bilateral knee replacement also appendectomy cholecystectomy and hernia repairs. She has chronic atrial fibrillation for which she takes Xarelto. Her last dose was the night before last. 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
--- NOTE | 2022-11-05 11:08 | WPDANESEPP ---
Anes - Eval Pre Procedure Procedure: colonoscopy Date/Time: 11/05/22 11:08 Pre Op Diagnosis: GI bleed Patient Data Age: 72 Gender: F Height: 1.55 m Weight: 93.5 kg Last Vital Signs Temp 35.9 C L 11/05/22 06:00 Pulse 80 11/05/22 08:36 Resp 16 11/05/22 06:00 BP 151/73 H 11/05/22 06:00 Pulse Ox 96 11/05/22 07:38 O2 Del Method Room Air 11/05/22 08:30 Allergies Allergy/AdvReac Type Severity Reaction Status Date / Time Sulfa (Sulfonamide Allergy Rash Verified 11/05/22 00:36 Antibiotics) codeine AdvReac Unknown Nausea and Verified 11/05/22 00:36 Vomiting Home Medications Medication Instructions Recorded Confirmed Type famotidine 20 mg tablet 20 mg PO BID #60 tabs 06/16/21 11/05/22 Rx doxycycline hyclate 20 mg tablet 40 mg PO DAILY 01/04/22 11/05/22 History metolazone 2.5 mg tablet 2.5 mg PO 3XW 01/04/22 11/05/22 History lisinopril 20 mg tablet 20 mg PO BID #180 tabs 02/17/22 11/05/22 Rx rivaroxaban 20 mg tablet (Xarelto) 20 mg PO HS 08/09/22 11/05/22 History blood sugar diagnostic (Accu-Chek #100 ea 08/10/22 11/05/22 Rx Norma Plus test strips) glimepiride 2 mg tablet 4 mg PO DAILY #180 tabs 08/29/22 11/05/22 Rx magnesium oxide 400 mg (241.3 mg 400 mg PO DAILY 09/16/22 11/05/22 History magnesium) tablet metformin 500 mg tablet,extended 500 mg PO QID 09/16/22 11/05/22 History release 24 hr pravastatin 20 mg tablet 20 mg PO HS 09/16/22 11/05/22 History propylene glycol 0.6 % eye drops 1 drp EACH EYE DAILY Dry Eyes 09/16/22 11/05/22 History (Systane Balance) allopurinol 300 mg tablet 300 mg PO DAILY #30 tabs 09/30/22 11/05/22 Rx amiodarone 200 mg tablet 200 mg PO DAILY 10/07/22 11/05/22 History metoprolol tartrate 50 mg tablet 25 mg PO BID #30 tabs 10/10/22 11/05/22 Rx hydrocodone 10 mg-acetaminophen 0.5 tablet PO TID PRN pain #30 tabs 10/20/22 11/05/22 Rx 325 mg tablet furosemide 40 mg tablet 60 mg PO QAM #135 tabs 10/24/22 11/05/22 Rx indomethacin 50 mg capsule 50 mg PO TID PRN .Gout flare ups. 11/05/22 11/05/22 History Laboratory Tests 11/04/22 11/04/22 11/04/22 18:42 19:21 22:48 WBC 9.0 K/mm3 (4.5-10.0) RBC 5.01 M/mm3 (4.2-5.4) Hgb 13.7 g/dL (12.0-15.0) Hct 44.6 % (37.0-47.0) MCV 89.0 fl (80-100) MCH 27.3 pg (26-34) MCHC 30.7 L g/dl (32-36) RDW 15.6 H % (11.5-14.5) Plt Count 310 k/mm3 (150-375) MPV 11.0 H fl (7.4-10.4) Immature Gran % (Auto) 0.6 H % (0-0.5) Neut % (Auto) 49.1 % (45.5-73.1) Lymph % (Auto) 41.4 % (18.3-44.2) [place] % (Auto) 7.5 % (2.6-8.5) Eos % (Auto) 0.6 % (0-4.4) Baso % (Auto) 0.8 % (0.2-1.2) Lymph # (Auto) 3.73 H K/mm3 (0.9-3.2) [place] # (Auto) 0.7 H K/mm3 (0.1-0.6) Eos # (Auto) 0.1 K/mm3 (0-0.3) Baso # (Auto) 0.1 K/mm3 (0.0-0.1) Abs Immat Gran (auto) 0.05 H K/mm3 (0.00-0.031) Absolute Neuts (auto) 4.4 K/mm3 (1.3-6.7) Absolute Nucleated RBC 0.0 K/mm3 (0.0-0.012) Nucleated RBC % 0.0 % (0.0-0.2) PT 18.4 H Seconds (11.1-14.7) INR 1.4 APTT 34.9 SECONDS (22.3-36.8) Sodium 140 mmol/L (137-145) Potassium 3.7 mmol/L (3.4-5.0) Chloride 97 L mmol/L (98-107) Carbon Dioxide 27 mmol/L (22-30) Anion Gap 16 mmol/L (8-16) BUN 33 H mg/dL (7-17) Creatinine 1.10 H mg/dL (0.7-1.0) Estim Creat Clear Calc 42 ml/min Estimated GFR 49 L (59 - ) Glucose 263 H mg/dL (65-110) POC Capillary Glucose Lactic Acid 2.5 H mmol/L 2.3 H mmol/L (0.7-2.0) (0.7-2.0) Calcium 10.8 H mg/dL (8.4-10.2) Total Bilirubin 0.5 mg/dL (0.2-1.3) AST 40 H U/L (14-36) ALT 38 H U/L (6-35) [place]
[2022-11-05 11:19] LABS: Toxigenic C. Diff NEGATIVE (NEGATIVE)
[2022-11-05 11:22] LABS: Glucose Point of Care 216 mg/dl (65-105)
--- NOTE | 2022-11-05 12:58 | PM.IMPN ---
Progress Note: A&P Assessment and Plan (1) Bright red blood per rectum: Code(s): K62.5 - Hemorrhage of anus and rectum Status: Acute Assessment and Plan: Patient is having bright red blood per rectum. Diverticular bleed is suspected. She does have history of hemorrhoids. Will hold the patient's Xarelto. CT abdomen pelvis revealing no acute abdominal pelvic process. Will monitor serial H&Hs and repeat CBC in a.m. Gastroenterology has been consulted Plan for colonoscopy tomorrow. (2) GI bleed: Qualifiers: GI bleed type/associated pathology: unspecified gastrointestinal hemorrhage type Qualified Code(s): K92.2 - Gastrointestinal hemorrhage, unspecified Code(s): K92.2 - Gastrointestinal hemorrhage, unspecified Status: Acute Assessment and Plan: See above Patient started on IV Pepcid. monitor H&H (3) Type 2 diabetes mellitus with hyperglycemia, without long-term current use of insulin: Code(s): E11.65 - Type 2 diabetes mellitus with hyperglycemia Status: Acute Assessment and Plan: Patient does have type 2 diabetes mellitus and she tells me that her glucoses are always uncontrolled. Her a 1 C most recently was 8.[address] patient on moderate sliding scale insulin Accu-Cheks a.c. HS. Hypoglycemia protocol has also been ordered as needed. Patient is on a clear liquid diet. (4) Acute kidney injury: Code(s): N17.9 - Acute kidney failure, unspecified Status: Acute Assessment and Plan: appears to be due to dehydration. BUN and creatinine on admission was 33/1.1. Repeat was 21/0.8. Continue to monitor. Plan Patient does have history of paroxysmal atrial fibrillation but is currently in sinus rhythm. Will continue patient's home amiodarone the Xarelto is on hold due to GI bleeding. The patient's blood pressures are elevated above her baseline. I suspect patient did not receive her evening doses of antihypertensives. Will monitor blood pressure closely and resume home blood pressure medications. Subjective Date/time seen: 11/05/22 12:58 Interval history: Patient doing well and states that she continues to have bloody diarrhea. She does have history of hemorrhoids. She denies any shortness a breath, dizziness, fatigue , abdominal pain, nausea, vomiting or lightheadedness. Plan to have a colonoscopy tomorrow. Continue to monitor her H&H. Review of Systems Review of Systems: All systems reviewed & are unremarkable except as noted in HPI and below Exam Narrative: GENERAL: Comfortable, no acute distress HENMT: moist mucous membranes EYES: EOM intact b/l NECK: no lymphadenopathy RESPIRATORY: clear to auscultation CARDIO: RRR GI: soft, nontender, bowel sounds present SKIN: no rashes EXTREMITIES: no edema, redness or tenderness Objective Data Vital Signs Vital Signs: Vital Signs - 24 hr 11/04/22 18:25 11/04/22 20:21 11/04/22 20:26 Temperature 97.5 F L Pulse Rate 74 70 79 Respiratory Rate 14 16 Blood Pressure 169/59 H 165/55 H 165/55 H Pulse Oximetry 99 98 Oxygen Delivery Room Air 11/04/22 20:22 11/04/22 20:23 11/05/22 06:00 Temperature 96.7 F L Pulse Rate 75 80 81 Respiratory Rate 16 Blood Pressure 176/77 H 173/66 H 151/73 H Pulse Oximetry 98 Oxygen Delivery 11/05/22 08:35 11/05/22 08:36 11/05/22 07:38 Temperature Pulse Rate 80 80 Respiratory Rate Blood Pressure Pulse Oximetry 96 Oxygen Delivery Room Air 11/05/22 08:30 Temperature Pulse Rate Respiratory Rate Blood Pressure Pulse Oximetry Oxygen Delivery Room Air Intake/Output Intake/Output: Intake & Output 11/02/22 11/03/22 11/04/22 11/05/22 23:59 23:59 23:59 23:59 Intake Total 1000 1483 Balance 1000 1483 Meds/Results Medications: Active Medications Generic Name Dose Route Start Last Admin Trade Name Freq PRN Reason Stop Dose Admin Hydroc
[2022-11-05] MEDS: INSULIN ASPART (*BKC) 100 UNITS/ML SUB-Q (13:05)
[2022-11-05] MEDS: BISACODYL 5 MG TABLET EC 15 MG PO (13:07)
[2022-11-05 14:43] LABS: Hematocrit 37.8 % (37.0-47.0); Hemoglobin 11.7 g/dL (12.0-15.0)
[2022-11-05] MEDS: polyethylene glycoL 3350 238 GM BOTTLE PO (15:58)
[2022-11-05 16:31] LABS: Glucose Point of Care 138 mg/dl (65-105)
[2022-11-05 20:16] LABS: Hematocrit 39.6 % (37.0-47.0); Hemoglobin 12.4 g/dL (12.0-15.0)
[2022-11-05] MEDS: PRAVASTATIN SODIUM 20 MG TABLET PO (21:01)
[2022-11-05 23:00] LABS: Glucose Point of Care 190 mg/dl (65-105)
[2022-11-06] VITALS (7 sets, daily range): BP systolic 100–152; BP diastolic 47–89; PULSE 54–70; RESP 14–20; TEMP 35.9–36; O2SAT 98–100
[2022-11-06 02:21] LABS: Hematocrit 37.1 % (37.0-47.0); Hemoglobin 11.8 g/dL (12.0-15.0); Mean Corpuscular HGB Conc 31.8 g/dl (32-36); Mean Corpuscular Hemoglobin 28.1 pg (26-34); Mean Corpuscular Volume 88.3 fl (80-100); Mean Platelet Volume 10.3 fl (7.4-10.4); Platelet Count Result 268 k/mm3 (150-375); Red Cell Distribution Width 15.6 % (11.5-14.5); White Blood Count 8.2 K/mm3 (4.5-10.0)
[2022-11-06 03:04] LABS: Alanine Aminotransferase 33 U/L (6-35); Albumin Level 4.2 g/dL (3.5-5.1); Alkaline Phosphatase 110 U/L (38-126); Anion Gap 7 mmol/L (8-16); Aspartate Amino Transferase 38 U/L (14-36); Bilirubin,Total 0.5 mg/dL (0.2-1.3); Blood Urea Nitrogen 12 mg/dL (7-17); Calcium 9.8 mg/dL (8.4-10.2); Carbon Dioxide 28 mmol/L (22-30); Chloride 102 mmol/L (98-107); Estimated CRCL calculation 65 ml/min; Estimated Glomerular Filt Rate > 60; Glucose 179 mg/dL (65-110); Potassium 3.7 mmol/L (3.4-5.0); Sodium 137 mmol/L (137-145)
[2022-11-06 03:12] LABS: Hemoglobin A1C 9.5 % (<5.7)
[2022-11-06 07:34] LABS: Glucose Point of Care 207 mg/dl (65-105)
[2022-11-06] MEDS: METOPROLOL TARTRATE 25 MG TABLET PO (07:55)
[2022-11-06] MEDS: LACTATED RINGERS 1,000 ML 150 ML IV CONT (08:07)
[2022-11-06] MEDS: GENTAMICIN 80MG/SOD CHL 50 ML 80 MG/50 ML BAG 100 MG IVPB (08:08)
[2022-11-06 08:13] LABS: Glucose Point of Care 200 mg/dl (65-105)
[2022-11-06] MEDS: AMPICILLIN 2 GM/NS 100 ML 2 GM/100 ML BAG IVPB (08:31)
--- NOTE | 2022-11-06 08:37 | P.PNAN_ITS ---
Anes - Eval Final PreProcedure Day of Procedure 11/06/22 08:37 Patient weight: obese Heart: regular rate and rhythm Lungs: clear to auscultation Airway: Mallampati scale class II Neurological: alert and oriented Last oral intake: >/= 8 hours ASA classification: IV Emergent: no Anesthetic plan: proceed Anesthesia type and monitoring: general GIVS and standard monitoring Results Review: All pre-operative results and documents have been reviewed as part of the pre- operative evaluation. Informed Consent: The patient's anesthetic plan and its attendant risks and benefits were discussed with the patient/family/POA. Questions were solicited and answers provided to the satisfaction of the patient/family/POA.
--- NOTE | 2022-11-06 08:53 | SUR.OPER ---
EGD START: 847; END: 850. COLONOSCOPY START: 856; END: 908.
[2022-11-06 10:12] LABS: Glucose Point of Care 214 mg/dl (65-105)
--- NOTE | 2022-11-06 10:16 | PM.DS ---
DS: Admitting Diagnosis Discharge Date 11/06/22 Admitting Diagnosis Bright red blood per rectum DS: Discharge Diagnosis Discharge Diagnosis (1) Bright red blood per rectum: Code(s): K62.5 - Hemorrhage of anus and rectum Status: Acute (2) GI bleed: Qualifiers: GI bleed type/associated pathology: unspecified gastrointestinal hemorrhage type Qualified Code(s): K92.2 - Gastrointestinal hemorrhage, unspecified Code(s): K92.2 - Gastrointestinal hemorrhage, unspecified Status: Acute (3) Type 2 diabetes mellitus with hyperglycemia, without long-term current use of insulin: Code(s): E11.65 - Type 2 diabetes mellitus with hyperglycemia Status: Acute (4) Acute kidney injury: Code(s): N17.9 - Acute kidney failure, unspecified Status: Acute DS: Summary Hospital Course Hospital Course: this is a 72-year-old female with a past medical history of aortic valve replacement, AFib on chronic 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 with Xarelto, GERD, uncontrolled type 2 diabetes the presented to the ED on 11/05/2022 with a 1 week history of rectal bleeding. She does have a history of hemorrhoids. she has been having bowel movements that blood feels mobile. she was having some feelings of lightheadedness but no syncope, no shortness of breath or dizziness. GI consulted. Patient's 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 medications were put on hold. Her H&H remained stable during hospital stay. GI performed EGD and colonoscopy revealing diverticulosis with internal hemorrhoids. Rectal bleeding resolved at the time of discharge. Is advised that patient resume her 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 medication as well as her other medication. Discussed close follow-up with primary doctor regarding her diabetes. Her labs and vital signs are stable and she is medically clear for discharge. Time Spent with Patient Time attestation: Total time spent providing and/or coordinating discharge services: Exam Narrative: GENERAL: Comfortable, no acute distress HENMT: moist mucous membranes EYES: EOM intact b/l NECK: no lymphadenopathy RESPIRATORY: clear to auscultation CARDIO: RRR GI: soft, nontender, bowel sounds present SKIN: no rashes EXTREMITIES: no edema, redness or tenderness DS: Data Data Completed and Pending Labs on day of discharge: Labs from last 24 hours 11/06/22 11/06/22 11/06/22 10:09 08:09 07:16 WBC RBC Hgb Hct MCV MCH MCHC RDW Plt Count MPV Sodium Potassium Chloride Carbon Dioxide Anion Gap BUN Creatinine Estim Creat Clear Calc Estimated GFR Glucose POC Capillary Glucose 214 H 200 H 207 H Hemoglobin A1c Calcium Total Bilirubin AST ALT Alkaline Phosphatase Total Protein Albumin C. difficile (PCR) 11/06/22 11/05/22 11/05/22 02:13 20:39 19:49 WBC 8.2 RBC 4.20 Hgb 11.8 L 12.4 Hct 37.1 39.6 MCV 88.3 MCH 28.1 MCHC 31.8 L RDW 15.6 H Plt Count 268 MPV 10.3 Sodium 137 Potassium 3.7 Chloride 102 Carbon Dioxide 28 Anion Gap 7 L BUN 12 D Creatinine 0.70 Estim Creat Clear Calc 65 Estimated GFR > 60 Glucose 179 H POC Capillary Glucose 190 H Hemoglobin A1c 9.5 H Calcium 9.8 Total Bilirubin 0.5 AST 38 H ALT 33 Alkaline Phosphatase 110 Total Protein 7.0 Albumin 4.2 C. difficile (PCR) 11/05/22 11/05/22 11/05/22 16:25 14:05 11:13 WBC RBC Hgb 11.7 L Hct 37.8 MCV MCH MCHC RDW Plt Count MPV Sodium Potassium Chloride Carbon Dioxide Anion Gap BUN Creatinine Estim Creat Clear Calc Estimated GFR Glucose POC Capillary Glucose 138 H 216 H Hemoglobin A1c Calcium Total Bilirubin AST ALT Alkaline Phosphatase Total Protein Albumin C. difficile (PCR) 11/05/22 09:59 WBC RBC Hgb Hct MCV MCH MCHC
[2022-11-06 10:29] LABS: Hematocrit 38.2 % (37.0-47.0); Hemoglobin 11.8 g/dL (12.0-15.0)
[2022-11-06] MEDS: INSULIN ASPART (*BKC) 100 UNITS/ML SUB-Q (10:43)
[2022-11-06] MEDS: FAMOTIDINE 20 MG TABLET PO (10:44)
[2022-11-06] MEDS: AMIODARONE HCL 200 MG TABLET PO (10:44)
[2022-11-06] MEDS: allopurinoL 300 MG TABLET PO (10:44)
[2022-11-06] MEDS: ARTIFICIAL TEARS OPHTH SOLN 15 ML BOTTLE 1 DROP EACH EYE (10:45)
[2022-11-06] MEDS: lisinopriL 20 MG TABLET PO (10:45)
[2022-11-06] MEDS: MAGNESIUM OXIDE 400 MG TABLET PO (10:45)
--- NOTE | 2022-11-06 11:25 | PC.NURSE ---
Pt is A&O4 female who participated and contributed in plan of care. Pt had EGD and Colonoscopy this AM. Pt denies any pain. Pt eager to discharge. Pt educated on discharge instructions. Pt tolerated testing well. Pt IV removed tip intact, pt tolerated well. Pt expresses no needs at this time. Pt going home with . Pt wheeled down to car by PCT. Pt was monitored for any changes in status while here.
--- NOTE | 2022-11-07 14:24 | WPDANESPN ---
Anes - Prog Note Post-Op Date/Time: 11/07/22 14:24 Cardiovascular status: normal Respiratory status: normal Airway patency: baseline Mental status: baseline Post-Op hydration status: normal Vital Signs: Last Vital Signs Temp 96.7 F L 11/06/22 08:15 Pulse 54 L 11/06/22 10:44 Resp 20 11/06/22 09:30 BP 118/50 L 11/06/22 09:30 Pulse Ox 100 11/06/22 09:30 O2 Del Method Room Air 11/06/22 09:30 Pain Score (VAS): 0/10 Laboratory Tests 11/06/22 10:15 11/06/22 02:13 Microbiology 11/05/22 09:59 Stool Escherichia coli Shiga Toxins - Final 11/05/22 09:59 Stool Giardia Antigen (JANETTE) - Final Post-procedural complaints: none Patient Feedback: Patient satisfied with anesthetic care. Other Findings: Per FN report
== END 2022-11-06 11:20 | disposition home or self-care (01) | DRG 378 ==
LOC: ANHED 18:56 → ANH3MEDSUR 23:07
PROVIDERS: Internal Medicine Gastroenterology; Admitting Provider Internal Medicine; Emergency Provider Physician Assistant; PCP Family Medicine Adolescent Medicine; Visit Provider Internal Medicine Critical Care Medicine
PROC: 0DJD8ZZ Inspection of Lower Intestinal Tract, Via Natural or Artificial Opening Endoscopic (ICD-10-PCS; CPT 45378; principal; 2022-11-06 08:30)
DX: K57.91 Diverticulosis of intestine, part unspecified, without perforation or abscess with bleeding (principal); N17.9 Acute kidney failure, unspecified; E11.65 Type 2 diabetes mellitus with hyperglycemia; E66.9 Obesity, unspecified; E78.5 Hyperlipidemia, unspecified; E11.42 Type 2 diabetes mellitus with diabetic polyneuropathy; H40.9 Unspecified glaucoma; I27.20 Pulmonary hypertension, unspecified; I10 Essential (primary) hypertension; I48.0 Paroxysmal atrial fibrillation; I87.8 Other specified disorders of veins; K64.8 Other hemorrhoids; K21.9 Gastro-esophageal reflux disease without esophagitis; L94.0 Localized scleroderma [morphea]; M10.9 Gout, unspecified; N39.41 Urge incontinence; Z95.4 Presence of other heart-valve replacement; Z66 Do not resuscitate; Z68.38 Body mass index [BMI] 38.0-38.9, adult; Z79.84 Long term (current) use of oral hypoglycemic drugs; Z90.49 Acquired absence of other specified parts of digestive tract; Z96.653 Presence of artificial knee joint, bilateral; Z79.01 Long term (current) use of anticoagulants
CPT/HCPCS: 36415; 74177; 80048; 80053; 81003; 82948; 83036; 83605; 83690; 85014; 85018; 85025; 85027; 85610; 85730; 86850; 86900; 86901; 87045; 87081; 87269; 87427; 87493; 89055; 93005; 96360; 96361; 99285; A9270; G0378; J0290; J1580; J1815; J2704; J7030; J7120; Q9967

== ENCOUNTER 2022-11-16 12:26 | Outpatient (CLI) | payer MEDICARE, SELFPAY ==
--- NOTE | 2022-11-16 14:11 | WPDPFTINT ---
PFT Procedure Performed PFT Procedure Performed Plethysmography (Lung Vol) Diffusing Cap (DLCO) Flow Vol Loop Spirometry w/o Bronchodil PFT Interpretation This is a pulmonary function test with spirometry, plethysmography and diffusing capacity. The test was performed and results interpreted in accordance with the 2019 and 2005 ATS/ERS Task Force guidelines respectively using the Global Lung Function Initiative-2012 reference equations. Patient demonstrated good effort and cooperation. Reproducibility criteria were met. The quality of the spirometry maneuver was Grade A. Findings: Spirometry: The contour the inspiratory and expiratory flow tracing are normal. The FVC is 1.91 L, 76% predicted. The FEV1 is 1.38 L, 71% predicted. The FEV1: FVC ratio 72%. Plethysmography: The total lung capacity is 3.43 L, 74% predicted. The functional residual capacity is 1.92 L, 73% predicted. The residual volume is 1.52 L, 73% predicted. Diffusion capacity: The diffusing capacity unadjusted for hemoglobin and carboxyhemoglobin is 14.1, 74% predicted. The diffusing capacity adjusted for alveolar volume is 4.68, 107% predicted. Impression: There is a mild restrictive ventilatory abnormality. The spirometry is normal without evidence of an obstructive abnormality. The diffusing capacity is normal. There are no prior studies for comparison
== END 2022-11-16 12:27 | disposition home or self-care (01) ==
LOC: ANHPFT 12:28
PROVIDERS: PCP Family Medicine Adolescent Medicine; Visit Provider Nurse Practitioner Adult Health
DX: I48.91 Unspecified atrial fibrillation (principal); R94.2 Abnormal results of pulmonary function studies; Z79.899 Other long term (current) drug therapy
CPT/HCPCS: 94375; 94726; 94729

== ENCOUNTER 2023-03-20 10:14 | Outpatient (CLI) | payer MEDICARE, SELFPAY ==
--- NOTE | ~2023-03-20 | US_ITS ---
EXAMINATION: US carotid duplex BI DATE: 03/20/2023 10:57 INDICATION: Left carotid bruit TECHNIQUE: Grayscale, color Doppler, and pulsed Doppler images of the cervical carotid arteries were obtained. The degree of vessel stenosis is placed in one of the following categories: normal, <50%, 5 0-69%, >=70% but less than near-occlusion, near-occlusion, or total occlusion. Note that percent sten osis relative to normal distal artery lumen diameter is indirectly measured from velocity measurement s as described by Balwinder, et al. Radiology 2003; 229:340-346. Notes: Normal: Peak systolic velocity <125 centimeters/sec and no plaque <50%. Peak systolic velocity <125 ( EDV <40; ICA/CCA PSV ratio <2.0; used these factors only a tandem lesions or low cardiac output or co ntralateral disease) 50-69 %: PSV 125-230 (EDV 40-100; ratio 2-4) >= 70% but less than near occlusion: PSV greater than 230 (EDV > 100; ratio> 4.0) Near Occlusion: PSV that is variable; markedly narrowed lumen Occlusion: Absent flow on color/spectral Doppler and no lumen on chávez scale. COMPARISON: None. FINDINGS: RIGHT: The right common carotid artery (CCA) peak systolic velocity (PSV) is 87 cm/s. The right internal car otid artery (ICA) PSV is 84 cm/s. The right ICA end-diastolic velocity (EDV) is 18 cm/s. The right IC A/CCA PSV ratio is 1.0. The external carotid artery (ECA) PSV is 112 cm/s. There is antegrade flow in the right vertebral artery. LEFT: The left CCA PSV is 98 cm/s. The left ICA PSV is 72 cm/s. The left ICA EDV is 21 cm/s. The left ICA/C CA PSV ratio is 0.7. The ECA PSV is 97 cm/s. There is antegrade flow in the left vertebral artery. IMPRESSION: 1. Less than 50% stenosis in the right internal carotid artery by sonographic criteria. 2. Less than 50% stenosis in the left internal carotid artery by sonographic criteria. Reviewed, dictated and finalized at location B. ATRIC NURSE PRACTITIONER IMPRESSION: 1. Less than 50% stenosis in the right internal carotid artery by sonographic alice beaver. 2. Less than 50% stenosis in the left internal carotid artery by sonographic dimas fry.
== END 2023-03-20 10:15 | disposition home or self-care (01) ==
PROVIDERS: PCP Family Medicine Adolescent Medicine; Visit Provider Internal Medicine Cardiovascular Disease
DX: R09.89 Other specified symptoms and signs involving the circulatory and respiratory systems (principal); I65.23 Occlusion and stenosis of bilateral carotid arteries
CPT/HCPCS: 93880

== ENCOUNTER 2023-07-07 08:54 | Outpatient (CLI) | payer MEDICARE, SELFPAY ==
--- NOTE | ~2023-07-07 | XR_ITS ---
Clinical Indication: Amiodarone therapy shortness of breath PA and lateral views of the chest: Comparison: 06/22/2022 Findings: The lungs are clear, without evidence of focal consolidation or pleural effusion. Cardiome diastinal silhouette is stable, status post aortic valve replacement. Bones and soft tissues are unre markable. Impression: Clear lungs. Status post aortic valve replacement. Reviewed, dictated and finalized at location M. Impression: Clear lungs. Status post aortic valve replacement.
== END 2023-07-07 08:55 | disposition home or self-care (01) ==
PROVIDERS: PCP Family Medicine Adolescent Medicine; Visit Provider Internal Medicine Cardiovascular Disease
DX: R06.02 Shortness of breath (principal); Z79.899 Other long term (current) drug therapy; Z95.4 Presence of other heart-valve replacement
CPT/HCPCS: 71046

== ENCOUNTER 2024-01-09 00:55 | Day surgery (SDC) | payer MEDICARE, SELFPAY ==
[2024-01-08 17:48] VITALS: BMI 38.8
[2024-01-09] VITALS (17 sets, daily range): BP systolic 105–136; BP diastolic 38–82; PULSE 54–74; RESP 14–23; TEMP 36.4; O2SAT 94–100; BMI 37.9
[2024-01-09 07:50] LABS: Anion Gap 11 mmol/L (4-12); Blood Urea Nitrogen 28 mg/dL (7-17); Calcium 9.7 mg/dL (8.4-10.2); Carbon Dioxide 29 mmol/L (22-30); Chloride 98 mmol/L (98-107); Estimated CRCL calculation 50 ml/min; Estimated Glomerular Filt Rate > 60; Glucose 210 mg/dL (65-110); Potassium 3.2 mmol/L (3.4-5.0); Sodium 138 mmol/L (137-145)
[2024-01-09 07:59] LABS: Basophils Absolute Auto 0.1 K/mm3 (0.0-0.1); Basophils Percent Auto 0.8 % (0.2-1.2); Eosinophils Percent Auto 0.4 % (0-4.4); Hematocrit 37.5 % (37.0-47.0); Hemoglobin 11.8 g/dL (12.0-15.0); Immature Granulocyte Absolute 0.02 K/mm3 (0.00-0.031); Immature Granulocyte Percent A 0.3 % (0-0.5); Lymphocytes Absolute Auto 2.87 K/mm3 (0.9-3.2); Lymphocytes Percent Auto 39.6 % (18.3-44.2); Mean Corpuscular HGB Conc 31.5 g/dl (32-36); Mean Corpuscular Hemoglobin 29.2 pg (26-34); Mean Corpuscular Volume 92.8 fl (80-100); Mean Platelet Volume 11.1 fl (7.4-10.4); Monocytes Absolute Auto 0.6 K/mm3 (0.1-0.6); Monocytes Percent Auto 7.7 % (2.6-8.5); Neutrophils Absolute Auto 3.7 K/mm3 (1.3-6.7); Neutrophils Percent Auto 51.2 % (45.5-73.1); Platelet Count Result 269 k/mm3 (150-375); Red Blood Count 4.04 M/mm3 (4.2-5.4); Red Cell Distribution Width 15.6 % (11.5-14.5); White Blood Count 7.3 K/mm3 (4.5-10.0)
--- NOTE | 2024-01-09 08:46 | WPDHPUPDATE1 ---
History and Physical Update Update Date/Time: 01/09/24 08:46 History and Physical has been reviewed, including an updated exam of the patient. There are NO changes in the patient's condition. Risks, benefits, and alternatives have been discussed and questions answered. Patient agrees to proceed with procedure.
--- NOTE | 2024-01-09 08:46 | WPDMODSED ---
Moderate Sedation Note-Pt Data Patient Data Diagnosis: Coronary artery disease, abnormal stress test Present Complaint: Chest pain Procedure to be performed/Plan: Coronary angiography, left heart cath, +/- PCI Allergies Allergy/AdvReac Type Severity Reaction Status Date / Time Sulfa (Sulfonamide Allergy Rash Verified 01/09/24 07:24 Antibiotics) codeine AdvReac Unknown Nausea and Verified 01/09/24 07:24 Vomiting Home Medications Medication Instructions Recorded Confirmed Type rivaroxaban 20 mg tablet (Xarelto) 20 mg PO HS 08/09/22 01/08/24 History magnesium oxide 400 mg (241.3 mg 400 mg PO DAILY 09/16/22 01/08/24 History magnesium) tablet amiodarone 200 mg tablet 200 mg PO DAILY 10/07/22 01/08/24 History glimepiride 2 mg tablet 4 mg PO DAILY #180 tabs 06/02/23 01/08/24 Rx hydrochlorothiazide 12.5 mg capsule 12.5 mg PO DAILY 08/10/23 01/08/24 History sacubitril 49 mg-valsartan 51 mg 1 tablet PO BID 08/10/23 01/08/24 History tablet (Entresto) metformin 500 mg tablet,extended 500 mg PO QID #360 tabs 08/18/23 01/08/24 Rx release 24 hr blood sugar diagnostic (Accu-Chek #100 ea 09/06/23 Rx Norma Plus test strips) allopurinol 300 mg tablet 300 mg PO DAILY #30 tabs 10/29/23 01/08/24 Rx famotidine 20 mg tablet 20 mg PO BID #60 tabs 10/29/23 01/08/24 Rx hydrocodone 10 mg-acetaminophen 0.5 tablet PO TID PRN pain #30 tabs 12/26/23 01/08/24 Rx 325 mg tablet furosemide 40 mg tablet 60 mg PO DAILY 01/08/24 01/08/24 History metolazone 2.5 mg tablet 2.5 mg PO EVERY OTHER DAY 01/08/24 01/08/24 History metoprolol tartrate 50 mg tablet 12.5 mg PO BID 01/08/24 01/08/24 History pravastatin 20 mg tablet 20 mg PO DAILY 01/08/24 01/08/24 History Current Medications: Active Medications Sodium Chloride (Normal Saline Iv) 500 mls @ 100 mls/hr IV CONT .Q5H [facility] Sedation/Anesthesia: No previous sedation/anesthesia problems (including family history). [facility], [facility] Past Medical History Medical History Ankylosing hyperostosis [forestier], 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 Chronic venous stasis dermatitis Right lower extremity greater than left on chronic antibiotic therapy with doxycycline Diabetic peripheral neuropathy Diastolic dysfunction (~03/2020) Essential hypertension Glaucoma Gout Hyperlipidemia Migraine Obesity Pulmonary hypertension (~03/2020) Type 2 diabetes mellitus with hyperglycemia, without long-term current use of insulin Urolithiasis Surgical History Surgical History History of aortic valve replacement with bioprosthetic valve (11/2016) bovine valve History of lithotripsy (~01/2018) right Hx of appendectomy (2004) Hx of cholecystectomy (2004) Hx of hernia repair x3 Hx of total knee arthroplasty Right 2009, Left 2003 Family History Family History Mother Family history of cardiovascular disease Family history of chronic obstructive pulmonary disease Family history of rheumatoid arthritis Hypertension Sibling Family history of elevated blood lipids Family history of malignant neoplasm Family history of chronic obstructive pulmonary disease Hypertension Lung cancer Father Family history of cardiovascular disease Family history of malignant neoplasm Family history of liver disease Social History Social History Social History: She lives at home with her of 40 years. She clarifies that he is her 3rd . She has 2 sons. Her youngest son is 52 years old and has moved in with them to help. 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 She will lifelong nonsmoker. She has a history of heavy alcohol use but quit drinking alcohol in the 1980s. She denies illicit substance use. Code status: DNR/DNI (sherie heredia
--- NOTE | 2024-01-09 08:47 | P.PCNCC_ITS ---
Cardiac Cath Procedure Note Date of procedure:: 01/09/24 Performing physician:: CATHETERIZATION LABORATORY REPORT Procedure Date: 01/09/2024 Probation And Patrol Agent: Gaurang Rodríguez M.D., [facility]? Referring Physician: Luis Alberto Rahman M.D. ? Anesthesia: Versed and Fentanyl were ordered and given in my presence at 09:04, procedure ended at 09:48. Supervision of nurse monitored moderate sedation with Versed and Fentanyl was provided for 44 minutes. Total of Versed 1mg and Fentanyl 25mcg were administered by the Beet End Supervisor RN Marilynn Hernandez. Pre-op Diagnosis: Coronary artery disease Post-op Diagnosis: No obstructive coronary artery disease Procedure(s): 1. Moderate sedation 2. Ultrasound-guided access of the right radial artery 3. Coronary angiography Access Site: Right radial artery Brief History and Clinical Indications: Patient is a 73 year old female who is referred for [facility] for abnormal stress test. All risks, benefits and alternatives to left heart catheterization with or without percutaneous coronary intervention was discussed at length with the patient. Risk of complications including but not limited to bleeding, infection, arrhythmia, stroke, worsening kidney function, blood loss, groin hematoma, limb loss, emergency coronary artery bypass grafting, and even were discussed with the patient and all questions were answered. The patient understood and wished to proceed. Time out called, patient name, date of , medical record number, allergies, procedure performed, identify Probation And Patrol Agent, patient and staff member concurred with accurate data, procedure carried on. Findings: LEFT HEART CATHETERIZATION FINDINGS: 1. Left main: The left main coronary artery is widely patent without any significant obstructive disease. 2. Left anterior descending: The proximal LAD has very mild diffuse disease. Otherwise, remainder of the LAD and the diagonal branches have mild luminal irregularities without any significant obstructive angiographic disease. 3. Left circumflex: The left circumflex artery and the main marginal branches have mild luminal irregularities without any significant obstructive angiographic disease. 4. Right coronary artery: The RCA has mild luminal irregularities without any significant obstructive angiographic disease. The RCA is the dominant vessel. Description of Procedure: Informed consent signed and placed in the chart. Patient transferred to slab lifting engineer room. Prepped and draped in usual sterile fashion. 2% lidocaine injected subcutaneously in right wrist area. 22-gauge venipuncture catheter used to access the right radial artery under ultrasound guidance. 6-FR slender sheath placed in right radial artery. Nitroglycerine and Verapamil were given intraarterial through the sheath. Versacore wire advanced under fluoroscopy 5F Tig 4 diagnostic catheter engaged Left Main Coronary Artery. 5F FR 4 diagnostic catheter engaged Right Coronary Artery Multiple orthogonal angiogram obtained and reviewed Hemostasis was achieved by application of TR band. Disposition: Home Plan: The patient will be monitored in the recovery area. Discharge home after post cath bed rest is completed. The above findings were discussed with the referring physician. Continue aggressive medical therapy and risk factor modification. ? Gaurang Rodríguez M.D. Interventional Cardiology
== END 2024-01-09 14:30 | disposition home or self-care (01) ==
PROVIDERS: PCP Family Medicine Adolescent Medicine; Visit Provider Internal Medicine
PROC: (CPT 93454; principal; 2024-01-09 08:30)
DX: I25.10 Atherosclerotic heart disease of native coronary artery without angina pectoris (principal); R94.39 Abnormal result of other cardiovascular function study; E78.5 Hyperlipidemia, unspecified; I11.0 Hypertensive heart disease with heart failure; I50.32 Chronic diastolic (congestive) heart failure; M48.19 Ankylosing hyperostosis [Forestier], 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; H40.9 Unspecified glaucoma; E11.42 Type 2 diabetes mellitus with diabetic polyneuropathy; M10.9 Gout, unspecified; I27.20 Pulmonary hypertension, unspecified; G47.33 Obstructive sleep apnea (adult) (pediatric); I48.0 Paroxysmal atrial fibrillation; I87.8 Other specified disorders of veins; E66.9 Obesity, unspecified; Z68.37 Body mass index [BMI] 37.0-37.9, adult; Z79.01 Long term (current) use of anticoagulants; Z79.84 Long term (current) use of oral hypoglycemic drugs; Z95.2 Presence of prosthetic heart valve; Z79.891 Long term (current) use of opiate analgesic
CPT/HCPCS: 36415; 80048; 85025; 93454; C1769; C1887; C1894; J1644; J2250; J2305; J3010; J7040

== ENCOUNTER 2024-02-06 11:07 | Observation (INO) | payer MEDICARE, SELFPAY ==
[2024-02-06] VITALS (23 sets, daily range): BP systolic 114–143; BP diastolic 42–60; PULSE 67–85; RESP 15–21; TEMP 36.1–36.8; O2SAT 98–100
--- NOTE | ~2024-02-06 | CT_ITS ---
EXAMINATION: CT abdomen pelvis w con DATE: 02/06/2024 12:33 INDICATION: Gastrointestinal hemorrhage. TECHNIQUE: Computed tomography (CT) of the abdomen and pelvis was performed with 100 mL Omnipaque 350 intravenous contrast. Automated exposure control and iterative reconstruction technique were employe d. The dose-length product was 1183.71 mGy-cm. COMPARISON: CT abdomen and pelvis 11/04/2022 FINDINGS: The visualized portions of the lung bases demonstrate mild atelectasis. No pleural effusion . Cardiomegaly is noted. There are changes of aortic valve replacement. No pericardial effusion. The liver and spleen are normal. There are changes of cholecystectomy. The pancreas and adrenal glands ar e normal. There are 4 stones in right kidney measuring up to 8 mm. There is a 2 mm stone in left kidn ey. There are changes of ventral hernia repair. There is diverticulosis of the colon without evidence of diverticulitis. There are changes of appendectomy. There are no pathologically enlarged lymph nod es. There is no free intraperitoneal fluid. There is moderate lumbar spondylosis. IMPRESSION: 1. No etiology for the patient's symptoms. Reviewed, dictated and finalized at location A.
--- NOTE | 2024-02-06 11:34 | ED.RECABL ---
HPI - Recheck/Abnormal Lab/Rx General Chief Complaint: Recheck/Abnormal Lab/Rx <Jenni Potts PA-C - Last Filed: 02/06/24 15:23> Stated Complaint: ABN LABS <Jenni Potts PA-C - Last Filed: 02/06/24 15:23> Time Seen by Provider: 02/06/24 11:18 <Jenni Potts PA-C - Last Filed: 02/06/24 15:23> Source: patient <Jenni Potts PA-C - Last Filed: 02/06/24 15:23> Mode of arrival: ambulatory <MARY Winter Last Filed: 02/06/24 15:23> Limitations: no limitations <Jenni Potts PA-C - Last Filed: 02/06/24 15:23> History of Present Illness HPI narrative: This is a 73-year-old female that presents to the emergency department for rectal bleeding. Ongoing over the last week. Reports bright red blood per rectum. She saw her GI doctor last Monday. Had outpatient blood work which showed a low hemoglobin. She was prompted to be seen in the ER. Reports some abdominal discomfort. She is on 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. Denies fevers. <Jenni Potts PA-C - Last Filed: 02/06/24 15:23> Related Data Home Medications: Home Medications Medication Instructions Recorded Confirmed rivaroxaban 20 mg tablet (Xarelto) 20 mg PO HS 08/09/22 02/06/24 magnesium oxide 400 mg (241.3 mg 400 mg PO DAILY 09/16/22 02/06/24 magnesium) tablet amiodarone 200 mg tablet 200 mg PO DAILY 10/07/22 02/06/24 hydrochlorothiazide 12.5 mg capsule 12.5 mg PO DAILY 08/10/23 02/06/24 sacubitril 49 mg-valsartan 51 mg 1 tablet PO BID 08/10/23 02/06/24 tablet (Entresto) furosemide 40 mg tablet 60 mg PO DAILY 01/08/24 02/06/24 metolazone 2.5 mg tablet 2.5 mg PO EVERY OTHER DAY 01/08/24 02/06/24 metoprolol tartrate 50 mg tablet 12.5 mg PO BID 01/08/24 02/06/24 pravastatin 20 mg tablet 20 mg PO DAILY 01/08/24 02/06/24 cyanocobalamin (vitamin B-12) 1,000 mcg PO DAILY 02/06/24 02/06/24 1,000 mcg tablet <Jenni Potts PA-C - Last Filed: 02/06/24 15:23> Allergies/Adverse Reactions: Allergies Allergy/AdvReac Type Severity Reaction Status Date / Time Sulfa (Sulfonamide Allergy Rash Verified 02/06/24 15:09 Antibiotics) codeine AdvReac Unknown Nausea and Verified 02/06/24 15:09 Vomiting <Jenni Potts PA-C - Last Filed: 02/06/24 15:23> Review of Systems Review of Systems: CONSTITUTIONAL: Denies fever GASTROINTESTINAL: Reports abdominal pain. Denies nausea, vomiting, or diarrhea. <Jenni Potts PA-C - Last Filed: 02/06/24 15:23> All systems reviewed & are unremarkable except as noted in HPI and below <Jenni Potts PA-C - Last Filed: 02/06/24 15:23> [facility] Past Medical History Medical History: Medical History (Updated 02/06/24 @ 16:21 by Samara Taylor PA-C) Ankylosing hyperostosis [forestier], 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 Chronic venous stasis dermatitis Right lower extremity greater than left on chronic antibiotic therapy with doxycycline Diabetic peripheral neuropathy Diastolic dysfunction (~03/2020) Essential hypertension Glaucoma Gout Hyperlipidemia Migraine Obesity Pulmonary hypertension (~03/2020) Type 2 diabetes mellitus with hyperglycemia, without long-term current use of insulin Urolithiasis <Jenni Potts PA-C - Last Filed: 02/06/24 15:23> Surgical History Surgical History: Surgical History (Updated 02/06/24 @ 16:20 by Samara Taylor PA-C) History of aortic valve replacement with bioprosthetic valve (11/2016) bovine valve History of aortic valve replacement with tissue graft History of appendectomy History of bilateral knee arthroplasty History of cholecystectomy History of hernia repair History of lithotripsy (01/2018) right <Jenni Potts PA-C - Last Filed: 02/06/24 15:23> Family History Family History: Family History Mother Family history of cardiovascular disease Family history of chronic obstructive pulmonary disease Family history of rheumatoid arthri
[2024-02-06 11:48] LABS: Basophils Percent Auto 0.5 % (0.2-1.2); Eosinophils Percent Auto 0.4 % (0-4.4); Hematocrit 22.9 % (37.0-47.0); Immature Granulocyte Absolute 0.04 K/mm3 (0.00-0.031); Immature Granulocyte Percent A 0.5 % (0-0.5); Lymphocytes Absolute Auto 2.72 K/mm3 (0.9-3.2); Lymphocytes Percent Auto 36.3 % (18.3-44.2); Mean Corpuscular HGB Conc 29.7 g/dl (32-36); Mean Corpuscular Hemoglobin 27.9 pg (26-34); Mean Corpuscular Volume 93.9 fl (80-100); Mean Platelet Volume 10.2 fl (7.4-10.4); Monocytes Absolute Auto 0.5 K/mm3 (0.1-0.6); Monocytes Percent Auto 6.9 % (2.6-8.5); Neutrophils Absolute Auto 4.1 K/mm3 (1.3-6.7); Neutrophils Percent Auto 55.4 % (45.5-73.1); Nucleated Red Blood Cells Perc 0.4 % (0.0-0.2); Platelet Count Result 303 k/mm3 (150-375); Red Blood Count 2.44 M/mm3 (4.2-5.4); Red Cell Distribution Width 15.5 % (11.5-14.5); White Blood Count 7.5 K/mm3 (4.5-10.0)
[2024-02-06 12:03] LABS: Hemoglobin 6.8 g/dL (12.0-15.0)
[2024-02-06 12:06] LABS: Alanine Aminotransferase 30 U/L (6-35); Alkaline Phosphatase 89 U/L (38-126); Anion Gap 10 mmol/L (4-12); Aspartate Amino Transferase 38 U/L (14-36); Bilirubin,Total 0.1 mg/dL (0.2-1.3); Blood Urea Nitrogen 32 mg/dL (7-17); Calcium 9.4 mg/dL (8.4-10.2); Carbon Dioxide 27 mmol/L (22-30); Chloride 101 mmol/L (98-107); Estimated CRCL calculation 47 ml/min; Estimated Glomerular Filt Rate 54; Glucose 307 mg/dL (65-110); INR 1.6; Potassium 3.9 mmol/L (3.4-5.0); Prothrombin Time 19.2 Seconds (11.1-14.7); Sodium 138 mmol/L (137-145)
[2024-02-06 12:07] LABS: Partial Thromboplastin Time 34.2 Seconds (22.3-36.8)
[2024-02-06 12:21] LABS: Hypochromasia 1+; Platelet Estimate Adequate (Adequate); Schistocytes None Seen
[2024-02-06] MEDS: SODIUM CHLORIDE 0.9% IV 250 ML 30 ML IV CONT (13:51)
[2024-02-06] MEDS: TUBING, BLOOD PLUM PUMP TUBING 1 EACH XX (14:02)
--- NOTE | 2024-02-06 15:07 | ADMGEN ---
This patient, Lavern Rascon, was admitted to Medical Room 240-01. Patient/family oriented to hospital policies and general routines including ID bracelet, bed and alarms, visiting hours, pain management, procedures, bathroom and other care routines, personal items, smoking policy, room service/diet, and visiting hours. Information on how to activate the Rapid Response Team has been discussed. Patient/Family are encouraged to report perceived risks to care and to ask questions if they do not understand what they are told or what they should do.
--- NOTE | 2024-02-06 15:30 | PM.IMHP ---
H&P: HPI History of Present Illness Date/Time: 02/06/24 15:30 Chief Complaint: Abnormal labs, blood in stools. Narrative: This is a pleasant 73-year-old female with paroxysmal atrial fibrillation on chronic 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, hypertension, hyperlipidemia, and type 2 diabetes mellitus who presented to the emergency department with reports of abnormal labs and blood in stools. A couple of weeks ago she developed quite a bit of pain with her external hemorrhoids and 1 week ago he she started to notice bright red blood per rectum with every bowel movement. A few times the blood was dark maroon color and she was passing small amounts of clots. She believes that she lost quite a bit of blood as she has become increasingly fatigued, short of breath, and a bit lightheaded. She saw GI last Monday and had outpatient lab work done yesterday at which time she was found to have a hemoglobin under 7 and she was directed to the emergency department. She has not seen any bleeding since Monday. She denies syncope, near syncope, chest pain, epigastric and abdominal pain, nausea, and vomiting. In the ED: Vital signs were stable on arrival. Labs were significant for a hemoglobin of 6.8, hematocrit 22.9%, BUN 32, creatinine 1.00, glucose 307. CT of the abdomen pelvis showed no etiology for the patient's symptoms. She was transfused a unit of blood is being admitted in this setting for close monitoring and further workup. Review of Systems Review of Systems: 12 systems were reviewed and are negative except for as per HPI. 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 Chronic venous stasis dermatitis Right lower extremity greater than left on chronic antibiotic therapy with doxycycline Diabetic peripheral neuropathy Diastolic dysfunction (~03/2020) Essential hypertension Glaucoma Gout Hyperlipidemia Migraine Obesity Pulmonary hypertension (~03/2020) Type 2 diabetes mellitus with hyperglycemia, without long-term current use of insulin Urolithiasis Surgical History Surgical History (Updated 02/06/24 @ 16:20 by Samara Taylor PA-C) History of aortic valve replacement with bioprosthetic valve (11/2016) bovine valve History of aortic valve replacement with tissue graft History of appendectomy History of bilateral knee arthroplasty History of cholecystectomy History of hernia repair History of lithotripsy (01/2018) right Family History Family History Mother Family history of cardiovascular disease Family history of chronic obstructive pulmonary disease Family history of rheumatoid arthritis Hypertension Sibling Family history of elevated blood lipids Family history of malignant neoplasm Family history of chronic obstructive pulmonary disease Hypertension Lung cancer Father Family history of cardiovascular disease Family history of malignant neoplasm Family history of liver disease Social History Social History (Updated 02/06/24 @ 21:06 by Samara Taylor PA-C) Social History: Surrogate medical decision maker: Graham Rascon, spouse. Code status: Full code. Smoking status: Never smoker Second hand tobacco smoke exposure: No Alcohol intake: former Drinks per week: 2 Alcohol use details: 3 DRINKS PER MONTH Substance use: current Substance use type: does not use Last use: Pt states that she quit drinking heavily in the . Do You Feel Safe in your Home?: Yes Lack of Transportation: No Lack of Food: Never True Current Housing: I Have Housing Concerned About Future Housing: No Difficulty Paying Gas/Electric Bills: No Difficulty Paying for Meds: No Currently Unemployed: No Education: High School Diploma/GED Difficulty w/ Childcare or Family Care: No Living arrangements: with famil
[2024-02-06 17:02] LABS: Glucose Point of Care 151 mg/dl (65-105)
[2024-02-06 17:23] LABS: Hemoglobin A1C 9.1 % (<5.7)
[2024-02-06] MEDS: SACUBITRIL/VALSARTAN 49-51 MG TABLET 1 TABLET PO (21:28)
[2024-02-06] MEDS: FAMOTIDINE 20 MG TABLET PO (21:28)
[2024-02-06] MEDS: METOPROLOL TARTRATE 12.5 MG TABLET PO (21:28)
[2024-02-06 22:02] LABS: Glucose Point of Care 124 mg/dl (65-105)
[2024-02-07] VITALS: BP 103/43; PULSE 67; RESP 16; TEMP 36.5; O2SAT 98
[2024-02-07 04:00] VITALS: BP 122/46; PULSE 84; RESP 16; TEMP 36.4; O2SAT 99
[2024-02-07 05:09] VITALS: BMI 38.5
[2024-02-07 05:32] LABS: Hematocrit 25.1 % (37.0-47.0); Hemoglobin 7.7 g/dL (12.0-15.0); Mean Corpuscular HGB Conc 30.7 g/dl (32-36); Mean Corpuscular Hemoglobin 28.3 pg (26-34); Mean Corpuscular Volume 92.3 fl (80-100); Mean Platelet Volume 10.9 fl (7.4-10.4); Platelet Count Result 329 k/mm3 (150-375); Red Blood Count 2.72 M/mm3 (4.2-5.4); Red Cell Distribution Width 15.7 % (11.5-14.5); White Blood Count 7.3 K/mm3 (4.5-10.0)
[2024-02-07 05:46] LABS: Anion Gap 6 mmol/L (4-12); Blood Urea Nitrogen 24 mg/dL (7-17); Calcium 9.2 mg/dL (8.4-10.2); Carbon Dioxide 32 mmol/L (22-30); Chloride 101 mmol/L (98-107); Estimated CRCL calculation 46 ml/min; Estimated Glomerular Filt Rate 54; Glucose 107 mg/dL (65-110); Magnesium 1.6 mg/dL (1.6-2.3); Potassium 3.2 mmol/L (3.4-5.0); Sodium 139 mmol/L (137-145)
--- NOTE | 2024-02-07 07:24 | PM.IMPN ---
Subjective Date/time seen: 02/07/24 07:24 Interval history: Interval history: This is a 73-year-old female who presented to the hospital on 02/06/2024 with bright red blood per rectum with every bowel movement. She recently seen GI last Monday and had outpatient lab workup done which she was found to have a hemoglobin under 7 and was directed to the emergency room. Workup in the hospital included an abdomen pelvis CT which was negative. Initial labs shown a hemoglobin of 6.8, hematocrit 22.9, INR 1.6, hemoglobin A1c 9.1, blood sugar 151-307, AST 38. Patient was given 2 units of blood and hemoglobin corrected to 8.0. GI was consulted. Subjective: Patient denies. Patient endorses. Objective Data Vital Signs Vital Signs: Vital Signs - 24 hr 02/06/24 11:32 02/06/24 12:09 02/06/24 13:05 Temperature 97.6 F Pulse Rate 71 78 74 Respiratory Rate 15 21 H 18 Blood Pressure 114/49 L 119/44 L 117/47 L Pulse Oximetry 100 100 100 Oxygen Delivery Room Air 02/06/24 13:21 02/06/24 13:22 02/06/24 13:23 Temperature Pulse Rate 70 68 79 Respiratory Rate Blood Pressure 119/47 L 114/48 L 124/54 L Pulse Oximetry Oxygen Delivery 02/06/24 13:50 02/06/24 13:51 02/06/24 14:06 Temperature 97.8 F 97.8 F 98.3 F Pulse Rate 73 73 73 Respiratory Rate 19 19 19 Blood Pressure 114/45 L 114/45 L 115/47 L Pulse Oximetry 100 100 100 Oxygen Delivery 02/06/24 14:37 02/06/24 15:01 02/06/24 15:01 Temperature 98.3 F 98.3 F Pulse Rate 83 72 72 Respiratory Rate 19 20 20 Blood Pressure 131/50 L 118/47 L 118/47 L Pulse Oximetry 100 99 99 Oxygen Delivery 02/06/24 15:21 02/06/24 15:18 02/06/24 15:06 Temperature 97.9 F 97.9 F Pulse Rate 85 85 Respiratory Rate 18 18 Blood Pressure 134/44 L 134/44 L Pulse Oximetry 98 100 100 Oxygen Delivery Room Air 02/06/24 16:00 02/06/24 16:06 02/06/24 17:06 Temperature 98.1 F 98.1 F 98.1 F Pulse Rate 74 74 71 Respiratory Rate 16 16 18 Blood Pressure 131/57 L 131/57 L 121/42 L Pulse Oximetry 100 100 100 Oxygen Delivery 02/06/24 17:40 02/06/24 20:25 02/06/24 20:25 Temperature 96.9 F L 97.6 F Pulse Rate 74 77 77 Respiratory Rate 20 16 Blood Pressure 121/45 L 135/48 L 135/48 L Pulse Oximetry 100 99 Oxygen Delivery 02/06/24 20:27 02/06/24 20:28 02/06/24 21:28 Temperature Pulse Rate 80 85 78 Respiratory Rate Blood Pressure 138/52 L 143/60 H Pulse Oximetry Oxygen Delivery 02/07/24 00:00 02/06/24 20:40 02/07/24 04:00 Temperature 97.7 F 97.6 F Pulse Rate 67 67 84 Respiratory Rate 16 16 16 Blood Pressure 103/43 L 122/46 L Pulse Oximetry 98 98 99 Oxygen Delivery Room Air Intake/Output Intake/Output: Intake & Output 02/04/24 02/05/24 02/06/24 02/07/24 23:59 23:59 23:59 23:59 Intake Total 590 350 Balance 590 350 Meds/Results Medications: Active Medications Generic Name Dose Route Start Last Admin Trade Name Freq PRN Reason Stop Dose Admin Acetaminophen 650 mg 02/06/24 16:22 Acetaminophen 325 Mg Tablet PO Q6H PRN Mild Pain (1-3) or Fever Hydrocodone Bitart/Acetaminophen 0.5 tab 02/06/24 21:11 Hydrocodone/Acetaminophen (*Crx) 10-325 Mg Tablet PO TID PRN pain Allopurinol 300 mg 02/07/24 09:00 Allopurinol 300 Mg Tablet PO DAILY TAMMIE Amiodarone HCl 200 mg 02/07/24 09:00 Amiodarone Hcl 200 Mg Tablet PO DAILY TAMMIE Cyanocobalamin 1,000 mcg 02/07/24 09:00 Cyanocobalamin 1,000 Mcg Tablet PO DAILY TAMMIE Dextrose 12.5 gm 02/06/24 16:22 Dextrose 50% 25 Gm/50 Ml Syringe IV PUSH PRN PRN Hypoglycemia Protocol Famotidine 20 mg 02/06/24 21:20 02/06/24 21:28 Famotidine 20 Mg Tablet PO 20 mg BID TAMMIE Administration Furosemide 60 mg 02/07/24 09:00 Furosemide 20 Mg Tablet PO DAILY TAMMIE Glimepiride 4 mg 02/07/24 09:00 Glimepiride 2 Mg Tablet PO DAILY TAMMIE Glucagon 1 mg 02/06/24 16:22 Glu
[2024-02-07 08:00] VITALS: BP 113/42; PULSE 71; RESP 14; O2SAT 99
[2024-02-07 08:03] LABS: Glucose Point of Care 154 mg/dl (65-105)
[2024-02-07 10:00] VITALS: BP 113/42; PULSE 71; RESP 14; O2SAT 99
[2024-02-07 10:59] VITALS: BP 120/50; BP 126/53; PULSE 72; PULSE 78; RESP 14; RESP 16; O2SAT 98
[2024-02-07 12:06] LABS: Glucose Point of Care 137 mg/dl (65-105)
--- NOTE | 2024-02-07 12:34 | WPDGICN ---
Assessment and Plan Assessment and plan (1) Hematochezia: Code(s): K92.1 - Melena Status: Acute Assessment and Plan: resolved but caused symptomatic anemia, she has not had any more for last few days source most likely is diverticular, had colonoscopy 1 year ago hold blood thinner, no need to repeat colonoscopy since she has not had any more bleeding ok to start diet and she can go home instruct to return to er if bleeding again will need h/h as outpatient (2) Acute blood loss anemia: Code(s): D62 - Acute posthemorrhagic anemia Status: Acute Assessment and Plan: responded to blood transfusion (3) Acute GI bleeding: Code(s): K92.2 - Gastrointestinal hemorrhage, unspecified Status: Acute (4) Chronic 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: 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 Status: Acute Assessment and Plan: on hold for now (5) Hemorrhoids: Code(s): K64.9 - Unspecified hemorrhoids Status: Acute (6) Type 2 diabetes mellitus with hyperglycemia, without long-term current use of insulin: Code(s): E11.65 - Type 2 diabetes mellitus with hyperglycemia Status: Acute (7) Colon, diverticulosis: Code(s): K57.30 - Diverticulosis of large intestine without perforation or abscess without bleeding Status: Acute GI Consult Note Consult date/time: 02/07/24 12:34 Reason for consult: rectal bleeding, symptomatic anemia HPI: Lavern Rascon is a 73 year old female with history of paroxysmal atrial fibrillation on chronic 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, hypertension, hyperlipidemia, and type 2 diabetes mellitus who presented to the emergency department feeling weak and noted more anemia. She has been experiencing rectal bleeding for almost 7 days mostly maroon color, last time Monday but she noted to be more tired, also lightheaded and orthostatic. She even came to our office recently. hgb down to 6.8 (baseline 11). She received blood transfusion and right now doing much better, no more blood with stools. She had egd/colonoscopy- had left sided diverticulosis and hemorrhoids. CT scan showed diverticulosis. Review of Systems Constitutional: Constitutional: Reports weakness Eyes: Eyes: Denies blurry vision ENT: Reports Normal hearing present Cardiovascular: Cardiovascular: Denies chest pain Respiratory: Respiratory: Denies cough Gastrointestinal: Gastrointestinal: Reports hematochezia Genitourinary: Genitourinary: Denies hematuria Musculoskeletal: Musculoskeletal: Denies neck pain Integumentary/Breasts: Skin/Breast: Denies rash Neurologic: Denies Abnormal speech present Psychiatric: Psychiatric: Denies behavioral changes [facility] Past Medical History Medical History (Updated 02/07/24 @ 15:21 by Mendoza Cardoza MD) Ankylosing hyperostosis [forestier], 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 Chronic venous stasis dermatitis Right lower extremity greater than left on chronic antibiotic therapy with doxycycline Colon, diverticulosis Diabetic peripheral neuropathy Diastolic dysfunction (~03/2020) Essential hypertension Glaucoma Gout Hyperlipidemia Migraine Obesity Pulmonary hypertension (~03/2020) Type 2 diabetes mellitus with hyperglycemia, without long-term current use of insulin Urolithiasis Surgical History Surgical History History of aortic valve replacement with bioprosthetic valve (11/2016) bovine valve History of aortic valve replacement with tissue graft History of appendectomy History of bilateral knee arthroplasty History of cholecystectomy History of hernia repair History of lithotripsy (01/2018) right Family History Family History Mother Family history of cardiovascular disease Family history of chronic obstructive pulmonary disease Family history of rheumatoid arthritis Hypertension Sibl
--- NOTE | 2024-02-07 13:14 | PM.DS ---
DS: Admitting Diagnosis Discharge Date 02/07/24 Admitting Diagnosis Acute blood loss anemia Hematochezia Diastolic dysfunction Chronic 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 Type 2 diabetes mellitus Paroxysmal atrial fibrillation DS: Summary Hospital Course Reason for hospitalization: Acute blood loss anemia Hematochezia Diastolic dysfunction Chronic 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 Type 2 diabetes mellitus Paroxysmal atrial fibrillation Hospital Course: This is a 73-year-old female who presented to the hospital on 02/06/2024 with bright red blood per rectum with every bowel movement. She recently seen GI last Monday and had outpatient lab workup done which she was found to have a hemoglobin under 7 and was directed to the emergency room. Workup in the hospital included an abdomen pelvis CT which was negative. Initial labs shown a hemoglobin of 6.8, hematocrit 22.9, INR 1.6, hemoglobin A1c 9.1, blood sugar 151-307, AST 38. Patient was given 1 units of blood and hemoglobin corrected to 8.0. GI was consulted and plans to follow-up outpatient in 2 weeks. Her vital signs are stable, she is afebrile, she is currently on room air. She denies any bloody stools today. Her Xarelto was stopped and then changed to Eliquis 5 mg b.i.d. considering studies have shown that Xarelto has caused more GI bleeding versus Eliquis. She is stable for discharge at this time. Final diagnosis: Acute blood loss anemia, GI bleed Status at Discharge Cognitive/behavioral status at discharge: Alert oriented x4 Functional status at discharge: independent ambulation Overall status at discharge: patient is progressing back to baseline Time Spent with Patient Time attestation: Total time spent providing and/or coordinating discharge services: Exam Narrative: General: In no acute distress, well nourished Head: atraumatic, no encephalopathy Eyes: EOMI, PERRLA, sclera clear ENT: moist mucous membranes, nasal passages clear Neck: supple, no JVD, no adenopathy, trachea midline Cardiac: Normal S1 and S2. Murmur noted. No gallops or friction rubs, peripheral pulses intact. Respiratory: Lungs clear to auscultation, no adventitious lung sounds, currently on room air Gastrointestinal: soft, non-distended, non-tender, normoactive bowel sounds. : voiding without difficulty. Extremities: moves all extremities well, no edema Skin: clean, dry, intact. No wounds or lesions. Neuro: Alert and oriented x4, no neuro deficits. Psych: normal mood, normal affect, interactive DS: Data Data Completed and Pending Completed studies during hospitalization: Abdomen/pelvis CT Pending studies at discharge: None Labs on day of discharge: Labs from last 24 hours 02/07/24 02/07/24 02/07/24 12:04 07:57 04:16 WBC 7.3 RBC 2.72 L Hgb 7.7 L Hct 25.1 L MCV 92.3 MCH 28.3 MCHC 30.7 L RDW 15.7 H Plt Count 329 MPV 10.9 H Sodium 139 Potassium 3.2 L Chloride 101 Carbon Dioxide 32 H Anion Gap 6 BUN 24 H Creatinine 1.00 Estim Creat Clear Calc 46 Estimated GFR 54 L Glucose 107 POC Capillary Glucose 137 H 154 H Hemoglobin A1c Calcium 9.2 Magnesium 1.6 Blood Type Antibody Screen Crossmatch 02/06/24 02/06/24 02/06/24 20:46 18:30 18:30 WBC RBC Hgb 8.0 L Hct 25.0 L Cancelled MCV MCH MCHC RDW Plt Count MPV Sodium Potassium Chloride Carbon Dioxide Anion Gap BUN Creatinine Estim Creat Clear Calc Estimated GFR Glucose POC Capillary Glucose 124 H Hemoglobin A1c Calcium Magnesium Blood Type Antibody Screen Crossmatch 02/06/24 02/06/24 02/06/24 18:30 16:57 11:40 WBC RBC Hgb Cancelled Hct MCV MCH MCHC RDW Plt Count MPV Sodium Potassium Chloride Carbon Dioxide Anion Gap BUN Creatinine Estim Creat Clear Calc Estimated GFR Glucose POC Capillary Glucose
--- NOTE | 2024-02-07 14:05 | PM.CNGS ---
Assessment and Plan Assessment and plan (1) Hemorrhoids: Code(s): K64.9 - Unspecified hemorrhoids Status: Acute Assessment and Plan: The patient presented with GI bleeding and acute blood loss anemia requiring transfusion. She has a history of hemorrhoids, but has not had any previous surgical intervention. Her last colonoscopy was October of 2022 that showed large internal hemorrhoids and diverticulosis. With her acute episode of bleeding, there is concern that it was related to her hemorrhoids. Her 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 has been held. Her bleeding has stopped and her hemoglobin remains stable. There is no active bleeding on my exam. No indication for urgent surgical intervention at this time. Okay to discharge the patient from our standpoint and we will have her follow-up with Dr. Luna for evaluation of her hemorrhoids. Thank you for allowing us to see her in consultation. (2) Acute blood loss anemia: Code(s): D62 - Acute posthemorrhagic anemia Status: Acute (3) Acute GI bleeding: Code(s): K92.2 - Gastrointestinal hemorrhage, unspecified Status: Acute (4) Chronic 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: Code(s): Z79.01 - long-term (current) use of anticoagulants Status: Acute Assessment and Plan: Previously on Xarelto, which has been held. Hospitalist plans to eventually switch her to Eliquis. Would recommend holding her 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 for at least another couple of days. (5) Type 2 diabetes mellitus: Code(s): E11.9 - Type 2 diabetes mellitus without complications Status: Acute (6) Diastolic dysfunction: Onset Date: ~03/2020 Code(s): I51.89 - Other ill-defined heart diseases Status: Acute (7) Paroxysmal atrial fibrillation: Code(s): I48.0 - Paroxysmal atrial fibrillation Status: Acute (8) Presence of prosthetic heart valve: Onset Date: 11/2016 Code(s): Z95.2 - Presence of prosthetic heart valve Status: Acute Assessment and Plan: Hx of aortic valve replacement with a prosthetic valve. (9) HTN (hypertension): Qualifiers: Hypertension type: primary hypertension Qualified Code(s): I10 - Essential (primary) hypertension Code(s): I10 - Essential (primary) hypertension Status: Acute Plan I have discussed the patient's case and plan of care with Dr. Luna. History of Present Illness Consult details Consult date: 02/07/24 Reason for consult: other (Bleeding hemorrhoids) Requesting physician: Samara Taylor PA-C Narrative: This is a 73-year-old woman who we have been asked to see in surgical consultation for bleeding hemorrhoids. She has a history of paroxysmal atrial fibrillation on Xarelto, as well as multiple other medical problems. She was directed to the emergency department yesterday due to a low hemoglobin on outpatient labs. She had been experiencing rectal pain that she attributed to hemorrhoids and began to notice bright red blood per rectum with bowel movements. The bleeding got worse and she reports having dark maroon stools at times, and other times bright red. She was concerned she was losing a lot of blood as this was much more bleeding than she had experience with hemorrhoids in the past. The bleeding persisted for about a week. She became increasingly fatigued, short of breath, and slightly lightheaded. She was seen by GI as an outpatient last Monday. They ordered labs and referred her to General surgery. She went to have her labs drawn this week and was called with results of her hemoglobin at 6.8. She was directed to go to the ED. She was admitted had her Xarelto held. She received 1 unit of packed red blood cells. Her associated symptoms have resolved. GI was consulted and will plan outpatient endoscopic evaluation. Her hemoglobin has remained stable and is 7.7 today. Our service was consulted when the patient was admitted for evaluation of the bleeding hemorrhoids. She is no longer hav
== END 2024-02-07 15:20 | disposition home or self-care (01) ==
LOC: ANHED 12:18 → ANH2MED 15:01
PROVIDERS: Physician Assistant; Admitting Provider General Practice; Emergency Provider Physician Assistant; PCP Family Medicine Adolescent Medicine; Visit Provider Nurse Practitioner Acute Care
DX: D62 Acute posthemorrhagic anemia (principal); K92.2 Gastrointestinal hemorrhage, unspecified; K64.9 Unspecified hemorrhoids; E11.65 Type 2 diabetes mellitus with hyperglycemia; K57.30 Diverticulosis of large intestine without perforation or abscess without bleeding; I11.9 Hypertensive heart disease without heart failure; I48.0 Paroxysmal atrial fibrillation; E11.42 Type 2 diabetes mellitus with diabetic polyneuropathy; E78.5 Hyperlipidemia, unspecified; I27.20 Pulmonary hypertension, unspecified; I87.8 Other specified disorders of veins; M48.19 Ankylosing hyperostosis [Forestier], 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; H40.9 Unspecified glaucoma; E66.9 Obesity, unspecified; Z68.38 Body mass index [BMI] 38.0-38.9, adult; Z79.01 Long term (current) use of anticoagulants; Z95.3 Presence of xenogenic heart valve; Z66 Do not resuscitate; Z79.84 Long term (current) use of oral hypoglycemic drugs; Z79.891 Long term (current) use of opiate analgesic
CPT/HCPCS: 36415; 36430; 74177; 80048; 80053; 82948; 83036; 83735; 85014; 85018; 85025; 85027; 85610; 85730; 86850; 86900; 86901; 86923; 99285; A9270; G0378; J7050; P9016; Q9967

== ENCOUNTER 2024-10-28 10:33 | Outpatient (CLI) | payer MEDICARE, SELFPAY ==
--- NOTE | ~2024-10-28 | XR_ITS ---
3 VIEWS LUMBAR SPINE Ordering provider: Corey Osman, TRANSITIONS MANAGER RN History: . M47.816 - Spondylosis without myelopathy or radiculopathy... . Comparison: None. FINDINGS: VERTEBRAL BODIES:Spondylolisthesis at the level of L5-S1. No visible fracture or subluxation. Degene rative changes of the spine. DISK SPACES: Narrowing of all the disc spaces with severe degenerative disease at the level of L1-L2, L2-L3 and L3-4.. Multilevel facet joint disease. SOFT TISSUES: Atherosclerotic changes. IMPRESSION: No acute osseous abnormality lumbar spine. Spondylolisthesis at the level of L5-S1. Multilevel degenerative disc disease. Reviewed, dictated and finalized at location A.
--- NOTE | ~2024-10-28 | XR_ITS ---
XR sacrum coccyx min 2V Ordering provider: Corey Osman APRN History: . M54.9 - Dorsalgia, unspecified . Comparison: None. FINDINGS: BONES: Lucency seen in the posterior aspect of the first coccygeal segment which may indicate a fract ure. Clinical evaluation for tenderness in the area advised. Spondylolisthesis at the level of L5-S1. JOINTS: The sacroiliac joint spaces are normal. Bilateral severe hip osteoarthritic changes. SOFT TISSUES: Soft tissues are normal. IMPRESSION: Possible fracture in the posterior aspect of the first sacral segment. Severe bilateral hip osteoarthritic changes. Reviewed, dictated and finalized at location A.
--- OUTSIDE RECORDS SUMMARY | 2024-10-28 10:46 | XMS_ITS | Referral Summary ---
Author Organization [facility] Address [address] [place] [address] Care Team Providers Care Cribbing Setter Name Role Phone Magdy Wheeler MD Primary Care Prov ider Encounters Date Type Department Care Team Description 10/15/2024 Telephone [facility] Medical Group Cardiology [address] [place] [address] Walt Rahman MD from Last 3 Months Allergies Active Allergy Reactions Criticality Noted Date Comments Codeine Other (See comments),Nausea only Low Racing heart Medications metFORMIN (GLUMETZA) 500 mg 24 hr tablet Take 1 tablet (500 mg total) by mouth 4 (four) times a day Active pravastatin (PRAVACHOL) 20 mg tablet Take 1 tablet (20 mg total) by mouth daily Active furosemide (LASIX) 40 mg tablet Take 1 tablet (40 mg total) by mouth daily Active HYDROcodone-acet aminophen (NORCO) 5-325 mg per tablet TAKE 1 TABLET BY MOUTH THREE TIMES DAILY NEEDED FOR PAIN 09/20/2019 Active glimepiride (AMARYL) 2 mg tablet 1.5 tablets (3 mg total) 05/12/2020 Active allopurinoL (ZYLOPRIM) 300 mg tablet 05/08/2020 Active doxycycline (PERIOSTAT) 20 mg tablet TAKE 2 TABLETS BY MOUTH ONCE DAILY ON AN EMPTY STOMACH 11/03/2020 Active famotidine (PEPCID) 20 mg tablet 03/23/2021 Active pioglitazone (ACTOS) 30 mg tablet Take 1 tablet (30 mg total) by mouth daily 01/24/2024 Active Eliquis 5 mg tablet Take 1 tablet (5 mg total) by mouth 2 (two) times a day 180 tablet 2 03/04/2024 Active cyanocobalamin (Vitamin B-12) 1,000 mcg sublingual tablet Take 1 tablet (1,000 mcg total) by mouth daily Active spironolactone (ALDACTONE) 25 mg tabletIndication s:Chronic diastolic heart failure (HCC) Take 1 tablet (25 mg total) by mouth daily 30 tablet 11 03/19/2024 03/19/20 25 Active metOLazone (ZAROXOLYN) 2.5 mg tabletIndication s:Bilateral lower extremity edema Take 1 tablet (2.5 mg total) by mouth once a week 04/12/2024 Active amiodarone (PACERONE) 200 mg tablet Take 1 tablet by mouth once daily 90 tablet 2 05/28/2024 Active hydroCHLOROthiaz lesley (MICROZIDE) 12.5 mg capsule Take 1 capsule by mouth once daily 90 capsule 2 06/10/2024 Active Entresto 49-51 mg tabletIndication s:Chronic diastolic heart failure (HCC) Take 1 tablet by mouth twice daily 180 tablet 08/05/2024 Active metoprolol tartrate (LOPRESSOR) 25 mg immediate release tabletIndication s:Atrial fibrillation, unspecified type (HCC) Take 0.5 tablets (12.5 mg total) by mouth 2 (two) times a day 90 tablet 3 08/20/2024 08/21/19 26 Active Active Problems Problem Noted Date Diagnosed Date Severe obesity 06/12/2024 Chronic diastolic heart failure 07/05/2023 senior living current use of amiodarone 07/05/2023 Left carotid bruit 03/02/2023 MIRAMONTES (dyspnea on exertion) 06/22/2022 Blurry vision, bilateral 05/28/2020 Pulmonary hypertension 05/28/2020 Bilateral lower extremity edema 10/28/2019 RAJ (obstructive sleep apnea) 11/06/2018 Hypersomnolence 05/03/2018 S/P AVR (aortic valve replacement) 01/04/2017 Atrial fibrillation 01/04/2017 Abnormal stress test 10/31/2016 Witnessed episode of apnea 10/31/2016 Hypertension associated with diabetes 10/31/2016 Hyperlipidemia LDL goal <70 10/31/2016 Hyperlipidemia associated with type 2 diabetes m ellitus 10/31/2016 Palpitations 10/31/2016 Resolved Problems Problem Noted Date Diagnosed Date Resolved Date Aortic valve stenosis 11/23/20162019 Social History Tobacco Use Types Packs/Day Years Used Date Smoking Tobacco: Never Smokeless Tobacco: Never Tobacco Cessation:Counseling Given: Not Answered Alcohol Use Standard Drinks/Week Comments No 0 (1 standard drink = 0.6 oz pur e alcohol) Comments Unknown Sex and Gender Information Value Date Recorded Sex Assigned at Not on file Legal Sex Female 12:46 AM JOB PRINTER APPRENTICE Gender Identity Not on file Sexual Orientation Not on file Last Filed Vital Signs Vital Sign Reading Time Taken Comments Blood Pressure 132/62 06/12/2024 12:47 PM JOB PRINTER APPRENTICE Pulse 80 06/12/2024 12:47 PM JOB PRINTER APPRENTICE Temperature 36.6 C (97.9 F) 04/21/2020 10:09 AM JOB PRINTER APPRENTICE Respiratory Rate 22 04/18/2023 10:17 AM JOB PRINTER APPRENTICE Oxygen Saturation 97% 06/12/2024 12:47 PM JOB PRINTER APPRENTICE Inhaled Oxygen Concentration - - Weight 89.4 kg (197 lb) 06/12/2024 12:47 PM JOB PRINTER APPRENTICE Height 154.9 cm (5' 1) 06/12/2024 12:47 PM JOB PRINTER APPRENTICE Body Mass Index 37.22 06/12/2024 12:47 PM JOB PRINTER APPRENTICE Plan of Treatment Not on file Procedures Procedure Name Priority Date/Time Associated Diagnosis Comments BASIC METABOLIC PANEL Routine 04/25/2024 12:29 PM JOB PRINTER APPRENTICE Chronic diastolic heart failure (HCC) POCT LIPID PANEL Routine 12/20/2023 9:53 AM CDT Hyperlipidemia associated with type 2 diabetes mellitus (HCC) from Last 3 Months or Most Recently Relevant to Health Maintenance Results * (ABNORMAL) Basic metabolic panel (04/25/2024 12:29 PM JOB PRINTER APPRENTICE) Glucose 175(H) 70 - 99 mg/dL [facility] - 01 BUN 28(H) 8 - 27 mg/dL [facility] - 01 Creatinine, Serum 1.30(H) 0.57 - 1.00 mg/dL [facility] - 01 eGFR 43(L) >59 mL/min/1.7 3 [facility] - 01 BUN/creat ratio 22 12 - 28 [facility] - 01 Sodium 139 134 - 144 mmol/L [facility] - 01 Potassium, sr 4.7 3.5 - 5.2 mmol/L [facility] - 01 Chloride 101 96 - 106 mmol/L [facility] - 01 CO2 22 20 - 29 mmol/L [facility] - 01 Calcium 10.0 8.7 - 10.3 mg/dL [facility] - 01 Blood 04/25/2024 12:2 9 PM JOB PRINTER APPRENTICE 04/25/2024 Narrative [facility] - 04/26/2024 10:09 AM JOB PRINTER APPRENTICE Performed at: - [facility] [address] [id number] Networking Specialist: Oracio Fisher PhD, Phone: [phone] Walt Rahman MD LAB BLOOD ORDERABLES Gertrudis l Result [facility] - 01 * POCT lipid panel (12/20/2023 9:53 AM CDT) Cholesterol, POC 145 mg/dL HDL, POC 43 mg/dL Triglycerides, POC 201 mg/dL LDL Cholesterol POC 62 mg/dL Chol/HDL Ratio, POC 1.4 Non-HDL Cholesterol, POC 102 mg/dL Cholesterol Total, POC 145 mg/dL Capillary blood 12/20/2023 9 :53 AM CDT Walt Rahman MD POINT OF CARE TEST ORDERA BLES Final Result from Last 3 Months or Most Recently Relevant to Health Maintenance Insurance MEDICARE MEDICARE [facility] MEDICARE SUPPLEMENT MEDICARE [facility] MEDICARE SUPPLEMENT Care Teams Cribbing Setter Relationship Specialty Start Date End Date Magdy Wheeler MD [address] [place] [address] PCP - General 12/11/07
--- OUTSIDE RECORDS SUMMARY | 2024-10-28 10:46 | XMS_ITS | Clinical Summary ---
Author Organization [facility] Address [address] [place] [address] Care Team Providers Care Provider Relations Specialist Name Role Phone Magdy Wheeler MD Primary Care Prov ider Allergies Active Allergy Reactions Criticality Noted Date [...] obesity 06/12/2024 Chronic diastolic heart failure 07/05/2023 long-term current use of amiodarone 07/05/2023 Left carotid [...] Date Resolved Date Aortic valve stenosis 11/23/20162019 Encounters Date Type Department Care Team Description 10/15/2024 Telephone [facility] Cardiology [address] [place] [phone] Walt Rahman MD from Last 3 Months Surgical History Surgery Date Site/Laterality Comments HERNIA REPAIR REPLACEMENT TOTAL KNEE BILATERAL APPENDECTOMY CHOLECYSTECTOMY Medical History Medical History Date Comments Hypertension Hyperlipidemia Diabetes mellitus (HCC) Arthritis Family History Medical History Relation Name Comments COPD Brother Cancer Brother Hyperlipidemia Brother Hypertension Brother Cancer Father Cirrhosis Father Heart disease Father COPD Mother Heart disease Mother Hypertension Mother Rheum arthritis Mother Relation Name Status Comments Brother Alive Father Mother Social History Tobacco Use Types Packs/Day Years Used Date Smoking Tobacco: Never Smokeless Tobacco: Never Tobacco Cessation:Counseling Given: Not Answered Alcohol Use Standard Drinks/Week Comments No 0 (1 standard drink = 0.6 oz pur e alcohol) Comments Unknown Sex and Gender Information Value Date Recorded Sex Assigned at Not on file Legal Sex Female 12:46 AM HOIST WORKER Gender Identity Not on file Sexual Orientation Not on file Obstetrics History Last Filed Vital Signs Vital Sign Reading Time Taken Comments Blood Pressure 132/62 06/12/2024 12:47 PM HOIST WORKER Pulse 80 06/12/2024 12:47 PM HOIST WORKER Temperature 36.6 C (97.9 F) 04/21/2020 10:09 AM HOIST WORKER Respiratory Rate 22 04/18/2023 10:17 AM HOIST WORKER Oxygen Saturation 97% 06/12/2024 12:47 PM HOIST WORKER Inhaled Oxygen Concentration - - Weight 89.4 kg (197 lb) 06/12/2024 12:47 PM HOIST WORKER Height 154.9 cm (5' 1) 06/12/2024 12:47 PM HOIST WORKER Body Mass Index 37.22 06/12/2024 12:47 PM HOIST WORKER Plan of Treatment Health Maintenance Due Date Last Done Comments Albumin Creatinine Ratio, Urine 1950 Breast Cancer Screening-Mammogram 1950 Colon Cancer Screening-Colonoscopy 1950 Depression Screening 1950 Fall Risk Assessment 1950 Hemoglobin A1C 1950 Hepatitis C Screening 1950 Osteoporosis Screening-Bone Density Scan 1950 Dilated Eye Exam 1950 Foot Exam 1950 DTaP/Tdap/Td Vaccine (1 - Tdap) 1961 Hepatitis B Screening 1968 Zoster Vaccine (1 of 2) 2000 Well Visit 65+ 08/24/2015 Pneumococcal vaccine 65+ (2 of 2 - PPSV23) 03/30/2020 02/03/2020 Influenza Vaccine (#1) 2024 02/03/2020 Lipid Panel 12/19/2024 12/20/2023, 02/15, 12/16/2021, Additional history exists eGFR 04/25/2025 04/25/2024, 05/2024, 04/11/2024, Additional history exists Procedures Procedure Name Priority Date/Time Associated Diagnosis Comments BASIC METABOLIC PANEL Routine 04/25/2024 12:29 PM HOIST WORKER Chronic diastolic heart failure (HCC) POCT LIPID PANEL Routine 12/20/2023 9:53 AM CDT Hyperlipidemia associated with type 2 diabetes mellitus (HCC) from Last 3 Months or Most Recently Relevant to Health Maintenance Results * (ABNORMAL) Basic metabolic panel (04/25/2024 12:29 PM HOIST WORKER) Glucose 175(H) 70 - 99 mg/dL [facility] [...] - 01 Blood 04/25/2024 12:2 9 PM HOIST WORKER 04/25/2024 Narrative [facility] - 04/26/2024 10:09 AM HOIST WORKER Performed at: [facility] [id number] Solid Waste Collection Worker: Oracio Fisher PhD, Phone: [phone] Walt Rahman MD LAB BLOOD ORDERABLES Gertrudis l Result [facility] - 01 * POCT lipid panel [...] Recently Relevant to Health Maintenance Insurance MEDICARE [facility] MEDICARE SUPPLEMENT MEDICARE [facility] [place] [facility] MEDICARE SUPPLEMENT Care Teams Provider Relations Specialist Relationship Specialty Start Date End Date Magdy Wheeler MD [address] [place] [address] PCP - General 12/11/07
--- OUTSIDE RECORDS SUMMARY | 2024-10-28 10:46 | XMS_ITS | Encounter Summary ---
Author Organization [facility] Address [address] [place] [address] Care Team Providers Care Bridge Gang Worker Name Role Phone Magdy Wheeler MD Primary Care Prov ider Encounter Details Date Type Department Care Team (Late st Contact Info) Description 10/15/2024 Telephone [facility] Medical Group Cardiology [address] [place] [address] Walt Rahman MD [address] [facility] [address] [place] [address] Social History Tobacco Use Types Packs/Day Years Used Date Smoking Tobacco: Never Smokeless Tobacco: Never Alcohol Use Standard Drinks/Week Comments No 0 (1 standard drink = 0.6 oz pur e alcohol) Comments Unknown Sex and Gender Information Value Date Recorded Sex Assigned at Not on file Legal Sex Female 12:46 AM QUIRK SANDER Gender Identity Not on file Sexual Orientation Not on file documented as of this encounter Miscellaneous Notes * Telephone Encounter - Cathy Kamara RN - 10/15/2024 11:21 AM CDT Spoke with pt, informed her it is ok to take hair skin and nail vitamin. Pt appreciated the callback. * Telephone Encounter - Serena Fontaine - 10/15/2024 10:55 AM CDT Pt requesting a call back to verify if it is okay for her to take a hair skin and nail vitamin called weem please advise thank you Contact: documented in this encounter Plan of Treatment Not on file documented as of this encounter Visit Diagnoses Not on filedocumented in this encounter Care Teams Bridge Gang Worker Relationship Specialty Start Date End Date Magdy Wheeler MD [address] [place] [address] PCP - General 12/11/07 documented as of this encounter
== END 2024-10-28 10:34 | disposition home or self-care (01) ==
PROVIDERS: PCP Family Medicine; Visit Provider Nurse Practitioner Adult Health
DX: M46.1 Sacroiliitis, not elsewhere classified (principal); M47.816 Spondylosis without myelopathy or radiculopathy, lumbar region; M43.17 Spondylolisthesis, lumbosacral region; M48.061 Spinal stenosis, lumbar region without neurogenic claudication; M51.369 Other intervertebral disc degeneration, lumbar region without mention of lumbar back pain or lower extremity pain
CPT/HCPCS: 72114; 72220

== ENCOUNTER 2024-12-19 06:33 | Outpatient (CLI) | payer MEDICARE, SELFPAY ==
--- NOTE | ~2024-12-19 | MR_ITS ---
EXAMINATION: MR lumbar spine wo con DATE: 12/19/2024 07:06 INDICATION: Spondylosis without myelopathy or radiculopathy TECHNIQUE: Magnetic resonance imaging (MRI) of the lumbar spine was performed without intravenous contrast. Sequences included sagittal T2-weighted FSE, sagittal T2-weighted FS FSE, sagittal T1-weighted FSE, and axial T2-weighted FSE. COMPARISON: None FINDINGS: Bilateral hypoplastic ribs at L1. 3 mm retrolisthesis L2 on L3. 4 mm anterolisthesis L5 on S1. There are multiple T1 hyperintense hemangiomas including at the left S1 sacral ala as well as at T11, L2, L3 and L4. Vertebral body heights are normal. Moderate disc height loss at L2-L3 and L5-S1. Mild disc height loss at T12-L1 and L4-L5. The conus medullaris terminates at L1. There is normal signal in the caudal spinal cord. Paravertebral soft tissues are unremarkable. The following disc levels are specifically discussed: T12-L1: Moderate size central disc protrusion. There is moderate bilateral facet joint osteoarthritis. There is no neural foraminal stenosis. There is mild central canal stenosis. L1-L2: The disc does not extend beyond the endplate margin. There is mild bilateral facet joint osteoarthritis. There is no neural foraminal stenosis. There is no central canal stenosis. L2-L3: Disc is bulging. There is moderate bilateral facet joint osteoarthritis. There is moderate bilateral neural foraminal stenosis. There is mild central canal stenosis. L3-L4: Mild bilateral foraminal zone disc protrusions. There is moderate bilateral facet joint osteoarthritis. There is mild bilateral neural foraminal stenosis. There is no central canal stenosis. L4-L5: Disc is mildly bulging. There is hypertrophy of the ligamentum flavum. There is severe bilateral facet joint osteoarthritis. There is mild right and mild to moderate left neural foraminal stenosis. There is no central canal stenosis. L5-S1: Disc is bulging. There is severe bilateral facet joint osteoarthritis likely with secondary fusion. There is mild bilateral neural foraminal stenosis. There is no central canal stenosis. IMPRESSION: 1. Moderate lumbar spondylosis. Reviewed, dictated and finalized at location A.
== END 2024-12-19 06:34 | disposition home or self-care (01) ==
PROVIDERS: PCP Family Medicine; Visit Provider Nurse Practitioner Adult Health
DX: M47.816 Spondylosis without myelopathy or radiculopathy, lumbar region (principal); M48.061 Spinal stenosis, lumbar region without neurogenic claudication
CPT/HCPCS: 72148